=== PATIENT | female | born 1960 | race Caucasian/White ===

== ENCOUNTER 2019-01-03 15:51 | Emergency (ER) | payer OTHER ==
--- OUTSIDE RECORDS SUMMARY | 2019-01-03 15:53 | XMS REPORT | Clinical Summary ---
:1960 Author Organization [facility] Address [address] [place] [address] Care Team Providers Name Role Phone Fior Portillo MD Primary Care Provider Allergies Active Allergy Reactions Severity Noted Date Comments Clarithromycin 01/12/2018 Severe vomiting Prochlorperazine 01/12/2018 seizure Iron 01/12/2018 anaphylactic shock Medications Medication Sig Dispensed Refills Start Date End Date Status clonAZEPAM Take 0.5 mg 0 Active (KlonoPIN) 0.5 MG by mouth 2 tablet (two) times a day as needed for seizures. estradiol (ESTRACE) Take 1 mg by 0 Active 1 MG tablet mouth daily. famotidine (PEPCID) Take 20 mg by 0 Active 20 MG tablet mouth 2 (two) times a day. levothyroxine Take 25 mcg 0 Active (SYNTHROID, LEVOXYL) by mouth 25 mcg tablet every morning. metoprolol tartrate Take 25 mg by 0 Active (LOPRESSOR) 25 mg mouth daily. tablet promethazine Take 25 mg by 0 Active (PHENERGAN) 25 MG mouth every 6 tablet (six) hours as needed for nausea or vomiting. traZODone (DESYREL) Take 50 mg by 0 Active 50 MG tablet mouth nightly as needed for sleep. venlafaxine XR Take 300 mg 0 Active (EFFEXOR-XR) 150 MG by mouth 24 hr capsule daily. ondansetron (ZOFRAN) Take 8 mg by 0 Active 8 MG tablet mouth every 8 (eight) hours as needed for nausea or vomiting. dexamethasone Take 0.75 mg 0 01/16/2018 Discontinued (DECADRON) 0.75 MG by mouth tablet every 12 (twelve) hours. 10 day course for root canal, patient is on day 05/27. Active Problems Problem Noted Date Acute renal failure 01/16/2018 Essential hypertension 01/13/2018 Depression 01/13/2018 Hypothyroid 01/13/2018 Congestive heart failure 01/12/2018 Pancreatic cancer Encounters Date Type Specialty Care Team Description 10/15/2018 Lab Lab Alfredo Mccollum Chronic kidney MD Nickolas disease, stage III (moderate) (HCC) (Primary Dx) 01/12/2018 - Hospital Encounter Cardiology Elizabeth Carlson Congestive heart failure, unspecified congestive heart failure chronicity, unspecified congestive heart failure type (Primary Dx); 01/16/2018 MD Remy Diastolic congestive heart failure, unspecified congestive heart failure chronicity; Gloria Magallanes Essential hypertension; Escobar Call MD Mild single current episode of major depressive disorder after 01/02/2018 Social History Tobacco Use Types Packs/Day Years Used Date Never Smoker Smokeless Tobacco: Never Used Alcohol Use Drinks/Week oz/Week Comments No Sex Assigned at Date Recorded Not on file Job Start Date Occupation Industry Not on file Not on file Not on file Travel History Travel Start Travel End No recent travel history available. Last Filed Vital Signs Vital Sign Reading Time Taken Blood Pressure 103/51 01/16/2018 7:21 AM LABORATORY SAMPLER Pulse 68 01/16/2018 11:00 AM LABORATORY SAMPLER Temperature 36.4 C (97.5 F) 01/16/2018 7:21 AM LABORATORY SAMPLER Respiratory Rate 20 01/16/2018 7:21 AM LABORATORY SAMPLER Oxygen Saturation 95% 01/16/2018 7:21 AM LABORATORY SAMPLER Inhaled Oxygen Concentration - - Weight 48.2 kg (106 lb 3 oz) 01/16/2018 6:20 AM LABORATORY SAMPLER Height 151.1 cm (4' 11.5") 01/12/2018 3:52 PM LABORATORY SAMPLER Body Mass Index 21.09 01/16/2018 6:20 AM LABORATORY SAMPLER Plan of Treatment Health Maintenance Due Date Last Done Comments CERVICAL CANCER SCREENING 1982 BREAST CANCER SCREENING 2011 SHINGLES VACCINES (1 of 2) 2011 INFLUENZA VACCINE 06/18/2018 COLON CANCER SCREENING 09/08/2024 09/08/2014 Implants Implanted Type Area Bottle And Glass Inspector Device Identifier Shelf Expiration Model / Date Serial / Lot Pacemaker Pacemaker Procedures Procedure Name Priority Date/Time Associated Comments Diagnosis ESTIMATED GFR Routine 10/15/2018 10:18 Results for this AM LABORATORY SAMPLER procedure are in the results section. C4 COMPLEMENT COMPONENT Routine 10/15/2018 10:18 Chronic kidney Results for this AM LABORATORY SAMPLER disease, stage III procedure are in (moderate) (HCC) the results section. C3 COMPLEMENT COMPONENT Routine 10/15/2018 10:18 Chronic kidney Results for this AM LABORATORY SAMPLER disease, stage III procedure are in (moderate) (HCC) the results section. PARTIAL THROMBOPLASTIN Routine 10/15/2018 10:18 Chronic kidney Results for this TIME (PTT) AM LABORATORY SAMPLER disease, stage III procedure are in (moderate) (HCC) the results section. PROTHROMBIN TIME WITH Routine 10/15/2018 10:18 Chronic kidney Results for this INR AM LABORATORY SAMPLER disease, stage III procedure are in (moderate) (HCC) the results section. URINALYSIS SCREEN AND Routine 10/15/2018 10:18 Chronic kidney Results for this MICROSCOPY, WITH REFLEX AM LABORATORY SAMPLER disease, stage III procedure are in TO CULTURE (moderate) (HCC) the results section. CREATININE LEVEL, Routine 10/15/2018 10:18 Chronic kidney Results for this URINE, RANDOM AM LABORATORY SAMPLER disease, stage III procedure are in (moderate) (HCC) the results section. PROTEIN, URINE, RANDOM Routine 10/15/2018 10:18 Chronic kidney Results for this AM LABORATORY SAMPLER disease, stage III procedure are in (moderate) (HCC) the results section. PHOSPHORUS LEVEL Routine 10/15/2018 10:18 Chronic kidney Results for this AM LABORATORY SAMPLER disease, stage III procedure are in (moderate) (HCC) the results section. COMPREHENSIVE METABOLIC Routine 10/15/2018 10:18 Chronic kidney Results for this PANEL AM LABORATORY SAMPLER disease, stage III procedure are in (moderate) (HCC) the results section. HC COMPLETE BLD COUNT Routine 10/15/2018 10:18 Chronic kidney Results for this W/AUTO DIFF AM LABORATORY SAMPLER disease, stage III procedure are in (moderate) (HCC) the results section. URINE CULTURE Routine 10/15/2018 10:18 Results for this AM LABORATORY SAMPLER procedure are in the results section. ZZESTIMATED GFR Routine 01/16/2018 4:00 Results for this AM LABORATORY SAMPLER procedure are in the results section. BASIC METABOLIC PANEL Routine 01/16/2018 4:00 Results for this AM LABORATORY SAMPLER procedure are in the results section. PARATHYROID HORMONE Routine 01/15/2018 5:30 Results for this AM LABORATORY SAMPLER procedure are in the results section. HC COMPLETE BLD COUNT Routine 01/15/2018 5:30 Results for this W/AUTO DIFF AM LABORATORY SAMPLER procedure are in the results section. ZZESTIMATED GFR Routine 01/15/2018 4:00 Results for this AM LABORATORY SAMPLER procedure are in the results section. BASIC METABOLIC PANEL Routine 01/15/2018 4:00 Results for this AM LABORATORY SAMPLER procedure are in the results section. ZZESTIMATED GFR Routine 01/14/2018 5:27 Results for this AM LABORATORY SAMPLER procedure are in the results section. MAGNESIUM LEVEL Routine 01/14/2018 5:27 Results for this AM LABORATORY SAMPLER procedure are in the results section. B NATRIURETIC PEPTIDE Routine 01/14/2018 5:27 Results for this AM LABORATORY SAMPLER procedure are in the results section. BASIC METABOLIC PANEL Routine 01/14/2018 5:27 Results for this AM LABORATORY SAMPLER procedure are in the results section. HC COMPLETE BLD COUNT Routine 01/14/2018 5:27 Results for this W/AUTO DIFF AM LABORATORY SAMPLER procedure are in the results section. ECHOCARDIOGRAM 2D Routine 01/13/2018 1:39 Results for this COMPLETE W MMODE PM LABORATORY SAMPLER procedure are in SPECTRAL COLOR DOPPLER the results (35649) section. TROPONIN Routine 01/13/2018 6:00 Results for this AM LABORATORY SAMPLER procedure are in the results section. ZZESTIMATED GFR Routine 01/13/2018 6:00 Results for this AM LABORATORY SAMPLER procedure are in the results section. T4, FREE Routine 01/13/2018 6:00 Results for this AM LABORATORY SAMPLER procedure are in the results section. THYROID STIMULATING Routine 01/13/2018 6:00 Results for this HORMONE AM LABORATORY SAMPLER procedure are in the results section. LIPID PANEL Routine 01/13/2018 6:00 Results for this AM LABORATORY SAMPLER procedure are in the results section. BASIC METABOLIC PANEL Routine 01/13/2018 6:00 Results for this AM LABORATORY SAMPLER procedure are in the results section. HC COMPLETE BLD COUNT Routine 01/13/2018 6:00 Results for this W/AUTO DIFF AM LABORATORY SAMPLER procedure are in the results section. URINALYSIS SCREEN AND Routine 01/12/2018 5:50 Results for this MICROSCOPY, WITH REFLEX PM LABORATORY SAMPLER procedure are in TO CULTURE the results section. URINE CULTURE Routine 01/12/2018 5:47 Results for this PM LABORATORY SAMPLER procedure are in the results section. ECG ED PRELIMINARY Routine 01/12/2018 5:17 Results for this INTERPRETATION PM LABORATORY SAMPLER procedure are in the results section. ZZESTIMATED GFR STAT 01/12/2018 4:42 Results for this PM LABORATORY SAMPLER procedure are in the results section. B NATRIURETIC PEPTIDE STAT 01/12/2018 4:42 Results for this PM LABORATORY SAMPLER procedure are in the results section. COMPREHENSIVE METABOLIC STAT 01/12/2018 4:42 Results for this PANEL PM LABORATORY SAMPLER procedure are in the results section. PARTIAL THROMBOPLASTIN STAT 01/12/2018 4:42 Results for this TIME (PTT) PM LABORATORY SAMPLER procedure are in the results section. PROTHROMBIN TIME WITH STAT 01/12/2018 4:42 Results for this INR PM LABORATORY SAMPLER procedure are in the results section. HC COMPLETE BLD COUNT STAT 01/12/2018 4:42 Results for this W/AUTO DIFF PM LABORATORY SAMPLER procedure are in the results section. XR CHEST 1 VW PORTABLE STAT 01/12/2018 4:39 Results for this PM LABORATORY SAMPLER procedure are in the results section. BLOOD CULTURE, AEROBIC Routine 01/12/2018 4:35 Results for this & ANAEROBIC PM LABORATORY SAMPLER procedure are in the results section. ECG 12-LEAD STAT 01/12/2018 4:02 Results for this PM LABORATORY SAMPLER procedure are in the results section. after 01/02/2018 Results Urinalysis screen and microscopy, with reflex to culture (10/15/2018 10:18 AM LABORATORY SAMPLER)Only the most recent of2 resultswithin the time period is included. Specimen site Clean catch [facility] Color, UA Straw [facility] Appearance, UA Clear [facility] Specific gravity, UA 1.013 1.001 - 1.035 [facility] pH, UA 5.0 5.0 - 8.5 [facility] Protein, UA Negative Negative [facility] Glucose, UA Negative Negative [facility] Ketones, UA Negative Negative [facility] Bilirubin, UA Negative Negative [facility] Blood, UA Negative Negative [facility] Nitrite, UA Negative Negative [facility] Urobilinogen, UA <2.0 <2.0 [facility] Leukocyte esterase, UA Negative Negative [facility] Epithelial cells, UA 1 /HPF [facility] WBC, UA <1 0 - 4 /HPF [facility] RBC, UA 1 0 - 5 /HPF [facility] Bacteria, UA None seen None seen [facility] Yeast, UA None seen [facility] Yeast with pseudohyphae, UA None seen [facility] Hyaline casts, UA 1 /LPF [facility] Specimen Urine Performing Organization Address City/State/Zipcode Phone Number [facility] DEPARTMENT OF PATHOLOGY AND [address] [place] [phone] [place] [phone] Estimated GFR (10/15/2018 10:18 AM LABORATORY SAMPLER) Estimated GFR 28 (A) mL/min/1.73 m2 [facility] Comment: HOSPITAL CatergoryUnitsInterpretation G1 >=90 Normal or high G2 60-89Mildly decreased C3s97-91Cafcmb to moderately decreased H4u90-72Vgjoculmam to severely decreased G4 15-29Severely decreased G5 <15Kidney failure The eGFR was calculated using the Chronic Kidney Disease Epidemiology Collaboration (CKD-EPI) equation. Interpretation is based on recommendations of the National Kidney Foundation-Kidney Disease Outcomes Quality Initiative (NKF-KDOQI) published in 2014. Specimen Plasma specimen Performing Organization Address City/[facility] Phone Number [facility] DEPARTMENT OF PATHOLOGY AND [address] [place] [phone] Protein, urine, random (10/15/2018 10:18 AM LABORATORY SAMPLER) Protein, urine random 5 mg/dL [facility] Specimen Urine Performing Organization Address City/[facility] [place] [facility] Cent[facility] Phone Number [facility] DEPARTMENT OF PATHOLOGY AND [address] [place] [phone] Creatinine level, urine, random (10/15/2018 10:18 AM LABORATORY SAMPLER) Creatinine, urine, random 105 mg/dL [facility] Specimen Urine Performing Organization Address City/[facility] [place] [facility] Phone Number [facility] DEPARTMENT OF PATHOLOGY AND [address] [place] [phone] Partial thromboplastin time, activated (10/15/2018 10:18 AM LABORATORY SAMPLER)Only the most recent of2 resultswithin the time period is included. PTT 25.9 23.0 - 36.0 sec [facility] Comment: PTT therapeutic range for unfractionated heparin is 61.0-112.0 seconds which corresponds to Anti-Xa 0.3-0.7 U/ml. Specimen Blood Performing Organization Address City/State/Zipcode Phone Number [facility] DEPARTMENT OF PATHOLOGY AND [address] [place] [address] [facility] [address] [place] [address] Prothrombin time with INR (10/15/2018 10:18 AM LABORATORY SAMPLER)Only the most recent of2 resultswithin the time period is included. Prothrombin time 13.2 11.5 - 14.5 sec [facility] INR 1.0 [facility] Comment: HOSPITAL The International Normalized Ratio (INR) is a therapeutic monitoring tool for patients who are stable on oral anticoagulant therapy. An INR of 2.0-3.0 is suggested for deep vein thrombosis/pulmonary embolism. Specimen Blood Performing Organization Address City/State/Zipcode Phone Number [facility] DEPARTMENT OF PATHOLOGY AND [address] [place], [place] [phone] [place] [phone] CBC with platelet and differential (10/15/2018 10:18 AM LABORATORY SAMPLER)Only the most recent of5 resultswithin the time period is included. WBC 8.00 4.50 - 11.00 k/uL [facility] RBC 3.57 (L) 4.20 - 5.50 m/uL [facility] HGB 10.8 (L) 12.0 - 16.0 g/dL [facility] HCT 35.0 (L) 37.0 - 47.0 % [facility] MCV 98.0 82.0 - 100.0 fL [facility] MCH 30.3 27.0 - 34.0 pg [facility] MCHC 30.9 (L) 31.0 - 37.0 g/dL [facility] RDW - SD 46.3 37.0 - 55.0 fL [facility] MPV 10.9 8.8 - 13.2 fL [facility] Platelet count 212 150 - 400 k/uL [facility] Nucleated RBC 0.00 /100 WBC [facility] Neutrophils 68.9 39.0 - 69.0 % [facility] Lymphocytes 22.0 (L) 25.0 - 45.0 % [facility] Monocytes 5.9 0.0 - 10.0 % [facility] Eosinophils 1.9 0.0 - 5.0 % [facility] Basophils 1.0 0.0 - 1.0 % [facility] Immature granulocytes 0.3Comment: "Immature 0.0 - 1.0 % [facility] granulocytes" HOSPITAL (promyelocytes, myelocytes, metamyelocytes) Specimen Blood Performing Organization Address City/[facility] [place] [facility] Cent[facility]ode Phone Number [facility] DEPARTMENT OF PATHOLOGY AND [address] [place] [phone] [place] [phone] Urine culture (10/15/2018 10:18 AM LABORATORY SAMPLER)Only the most recent of2 resultswithin the time period is included. Urine culture SEE COMMENTComment: Bacteriuria [facility] screen negative. Performing Organization Address [facility] [place] [facility] Centercode Phone Number [facility] DEPARTMENT OF PATHOLOGY AND [address] [place] [phone] C3 complement component (10/15/2018 10:18 AM LABORATORY SAMPLER) C3 complement 103 90 - 180 mg/dL [facility] Specimen Plasma specimen Performing Organization Address [facility] Phone Number [facility] DEPARTMENT OF PATHOLOGY AND [address] [place] [phone] [place] [phone] C4 complement component (10/15/2018 10:18 AM LABORATORY SAMPLER) C4 complement 13 10 - 40 mg/dL [facility] Specimen Plasma specimen Performing Organization Address [facility] Phone Number [facility] DEPARTMENT OF PATHOLOGY AND [address] [place] [phone] Phosphorus level (10/15/2018 10:18 AM LABORATORY SAMPLER) Phosphorus 3.0 2.4 - 4.5 mg/dL [facility] Specimen Plasma specimen Performing Organization Address [facility] [place] [facility]ode Phone Number [facility] DEPARTMENT OF PATHOLOGY AND [address] [place] [phone] Comprehensive metabolic panel (10/15/2018 10:18 AM LABORATORY SAMPLER)Only the most recent of2 resultswithin the time period is included. Sodium 140 135 - 148 mEq/L [facility] Potassium 4.7 3.5 - 5.0 mEq/L [facility] Chloride 103 98 - 112 mEq/L [facility] CO2 23 (L) 24 - 31 mEq/L [facility] Anion gap 14@ANIO 7 - 15 mEq/L [facility] BUN 20 6 - 20 mg/dL [facility] Creatinine 1.94 (H) 0.50 - 0.90 mg/dL [facility] Glucose 79 65 - 99 mg/dL [facility] Calcium 9.0 8.3 - 10.2 mg/dL [facility] Protein 6.3 6.3 - 8.3 g/dL [facility] Comment: HOSPITAL [place] 4.6-7.0 g/dL 1 week 4.4-7.6 g/dL 7 months-1year5.1-7.3 g/dL 1-2 years5.6-7.5 g/dL >3 years6.0-8.0 g/dL 18-150 6.3-8.3 g/dL Albumin 3.6 3.5 - 5.0 g/dL [facility] A/G ratio 1.3 0.7 - 3.8 [facility] Alkaline phosphatase 79 35 - 104 U/L [facility] AST 36 (H) 10 - 35 U/L [facility] ALT 48 5 - 50 U/L [facility] Total bilirubin 0.3 0.0 - 1.2 mg/dL [facility] Specimen Plasma specimen Performing Organization Address City/State/Zipcode Phone Number [facility] DEPARTMENT OF PATHOLOGY AND [address] [place] [phone] [facility]ICINE [address] [address] Estimated GFR (01/16/2018 4:00 AM LABORATORY SAMPLER)Only the most recent of5 resultswithin the time period is included. GFR Non Af Amer 29 (A) mL/min/1.73 m2 [facility] DEPARTMENT OF PATHOLOGY AND GENOMIC MEDICINE GFR Af Amer 35 (A) mL/min/1.73 m2 [facility] DEPARTMENT OF Comment: PATHOLOGY AND GENOMIC Chronic kidney disease: <60 mL/min/1.73m2 MEDICINE Kidney failure: <15 mL/min/1.73m2 The estimated GFR is calculated from the IDMS-traceable Modification of Diet in Renal Disease Equation. The accuracy of the calculation is poor when the creatinine is normal. Calculated values >90 mL/min/1.73m2 are not reported. This equation has not been validated in children (<18 years), women, the elderly (>70 years), or ethnic groups other than Caucasians and Americans. Specimen Plasma specimen Performing Organization Address City/State/[facility] [place] [facility] Centercode Phone Number [facility] DEPARTMENT OF PATHOLOGY AND [address] [place] [address] Basic metabolic panel (01/16/2018 4:00 AM LABORATORY SAMPLER)Only the most recent of4 resultswithin the time period is included. Sodium 143 135 - 148 mEq/L [facility] DEPARTMENT OF PATHOLOGY AND GENOMIC MEDICINE Potassium 4.4 3.5 - 5.0 mEq/L [facility] DEPARTMENT OF PATHOLOGY AND GENOMIC MEDICINE Chloride 103 98 - 112 mEq/L [facility] DEPARTMENT OF PATHOLOGY AND GENOMIC MEDICINE CO2 31 24 - 31 mEq/L [facility] DEPARTMENT OF PATHOLOGY AND GENOMIC MEDICINE Anion gap 9 7 - 15 mEq/L [facility] DEPARTMENT OF PATHOLOGY Comment: [facility] Starting from February , anion gap calculation no longer incorporates potassium. Please note the change. BUN 28 (H) 6 - 20 mg/dL [facility] DEPARTMENT OF PATHOLOGY AND GENOMIC MEDICINE Creatinine 1.8 (H) 0.5 - 0.9 mg/dL [facility] DEPARTMENT OF PATHOLOGY AND GENOMIC MEDICINE Glucose 96 65 - 99 mg/dL [facility] DEPARTMENT OF PATHOLOGY AND GENOMIC MEDICINE Calcium 9.0 8.3 - 10.2 mg/dL [facility] DEPARTMENT OF PATHOLOGY AND GENOMIC MEDICINE Specimen Plasma specimen Performing Organization Address City/[facility] [place] [facility] Centercotn Phone Number [facility] DEPARTMENT OF PATHOLOGY AND [address] [place] [address] Parathyroid hormone (01/15/2018 5:30 AM LABORATORY SAMPLER) PTH 99 (H) 15 - 65 pg/mL [facility] DEPARTMENT OF PATHOLOGY AND GENOMIC MEDICINE Specimen Blood Performing Organization Address City/[facility] [place] [facility] Centercode Phone Number [facility] DEPARTMENT OF PATHOLOGY AND [address] [place] [address] B natriuretic peptide (01/14/2018 5:27 AM LABORATORY SAMPLER)Only the most recent of2 resultswithin the time period is included. BNP 52 0 - 100 pg/mL [facility] DEPARTMENT OF PATHOLOGY AND GENOMIC MEDICINE Specimen Blood Performing Organization Address City/[facility] [place] [facility] Centercode Phone Number [facility] DEPARTMENT OF PATHOLOGY AND [address] [place] [address] GENOMIC MEDICINE Magnesium level (01/14/2018 5:27 AM LABORATORY SAMPLER) Magnesium 2.0 1.6 - 2.6 mg/dL [facility] DEPARTMENT OF PATHOLOGY AND GENOMIC MEDICINE Specimen Plasma specimen Performing Organization Address City/State/Zipcode Phone Number [facility] DEPARTMENT OF PATHOLOGY AND [address] [place] [address] GENOMIC MEDICINE Echocardiogram complete w contrast and 3D if needed (01/13/2018 1:39 PM LABORATORY SAMPLER) Narrative Performed At [facility] Echocardiography Report [address] [place] [address] [address] [address] Pat.Name:JENNIFER HADDAD Pat.ID:[id number] St.Date: 01/13/2018 Refer.MD:GLORIA MAGALLANES MD Exam Time: 1:07:00 PMStudy Type:Routine Echo Height:59inWeight: 114lb BSA: 1.45 m2 DOBAge:1960,57Y Sex: FEMALEBP:125/58 HR:60 bpmSonogrphr: ALO Bustamante Pat. Stat.:Inpatient Room:[facility] Study Status:Final Echo Event ID:[id number] Order ID:[id number] Reason for Study:SOB, suspected cardiac etiology History / Clinical:Cancer, Chest Pain, Edema, Shortness of Breath Procedures:2D Echo, Colorflow Doppler Race:C SUMMARY: LV EF is normal. Estimated EF is 65-69% RV systolic function is normal. Unable to assess severity of aortic regurgitation accurately. Suspect a mild-moderate lesion. LV filling pressure is normal. FINDINGS: LV: LV size is normal. LV EF is normal. Overall wall motion is normal.Estimated EF is 65-69% RV: RV size is normal. A pacemaker wire is seen in the RV. RV systolicfunction is normal. LA: LA volume is mildly enlarged. RA: RA volume is normal. A pacemaker wire is seen. AO: Aortic root diameter is normal. FANI: No pericardial effusion. AV: Mild thickening of AV leaflets. Mild calcification of AV leaflets.Unable to assess severity of aortic regurgitation accurately.Suspect a mild-moderate lesion. Vena contracta-0.3cm; Recommend further imaging for better assessmentof AR if clinically indicated. MV: No structural MV abnormalities noted. A trace of mitral regurgitation. PV: Pulmonic valve not well seen. Mild pulmonic regurgitation. TV: No structural TV abnormalities noted. Mild tricuspid regurgitation Lawrence: LV relaxation is impaired. LV filling pressure is normal. Other:Estimated PA systolic pressure is appx 26 mmHg, assuming a meanRAP of 5 mmHg. MEASUREMENTS: 2D Parasternal [place] LVOT 1.7 cmLA Ds3 cm LVIDd4.1 cmIndex2.8 cm/m LV Mass 73.4 g(87-129) LVIDs2.4 cmLVM Index 50.6 g/m2 LV%fs 40.6 % RWT0.3 IVSd 0.7 cmAo Rtd 2.8 cm Index1.9 cm/m LVPWd0.6 cm LA Sng Plane LA Area 19 cm2(8.8-23.4) LA Vol53.8 ml Index37.1 ml/m LA LngAx 5.5 cm RA Sng Plane RA Area 13.7 cm2(8.3-19.5) RA Vol32.8 ml Index22.6 ml/m RA LngAx 4.7 cm DOPPLER LVOT Stroke Vol LVOT 1.7 cmLVOT CO2.9 l/min LVOT TVI20.9 cmLVOT CI2 l/m/m2 LVOT Tm389 uvtoEG39 bpm LVOT SV 47.3 ml Signed 01/14/2018 11:50 AM Elizabeth London MD Procedure Note Interface, Radiology Results In - 01/14/2018 11:50 AM LABORATORY SAMPLER Echocardiography Report [id number] [place] [address] Pat.Name: JENNIFER HADDAD Pat.ID: [id number] St.Date: 01/13/2018 Refer.MD: GLORIA MAGALLANES MD Exam Time: 1:07:00 PM Study Type:Routine Echo Height: 59in Weight: 114lb BSA: 1.45 m2 Age: 10 1960,57Y Sex: FEMALE BP: 125/58 HR: 60 bpm Sonogrphr: ALO Bustamante Pat. Stat.:Inpatient [facility] Study Status:Final Echo Event ID:[id number] Order ID: [id number] Reason for Study:SOB, suspected cardiac etiology History / Clinical:Cancer, Chest Pain, Edema, Shortness of Breath Procedures:2D Echo, Colorflow Doppler Race: C SUMMARY: LV EF is normal. Estimated EF is 65-69% RV systolic function is normal. Unable to assess severity of aortic regurgitation accurately. Suspect a mild-moderate lesion. LV filling pressure is normal. FINDINGS: LV: LV size is normal. LV EF is normal. Overall wall motion is normal. Estimated EF is 65-69% RV: RV size is normal. A pacemaker wire is seen in the RV. RV systolic function is normal. LA: LA volume is mildly enlarged. RA: RA volume is normal. A pacemaker wire is seen. AO: Aortic root diameter is normal. FANI: No pericardial effusion. AV: Mild thickening of AV leaflets. Mild calcification of AV leaflets. Unable to assess severity of aortic regurgitation accurately. Suspect a mild-moderate lesion. Vena contracta-0.3 cm; Recommend further imaging for better assessment of AR if clinically indicated. MV: No structural MV abnormalities noted. A trace of mitral regurgitation. PV: Pulmonic valve not well seen. Mild pulmonic regurgitation. TV: No structural TV abnormalities noted. Mild tricuspid regurgitation Lawrence: LV relaxation is impaired. LV filling pressure is normal. Other: Estimated PA systolic pressure is appx 26 mmHg, assuming a mean RAP of 5 mmHg. MEASUREMENTS: 2D Parasternal [place] LVOT 1.7 cm LA Ds 3 cm LVIDd 4.1 cm Index 2.8 cm/m LV Mass 73.4 g (87-129) LVIDs 2.4 cm LVM Index 50.6 g/m2 LV%fs 40.6 % RWT 0.3 IVSd 0.7 cm Ao Rtd 2.8 cm Index 1.9 cm/m LVPWd 0.6 cm LA Sng Plane LA Area 19 cm2 (8.8-23.4) LA Vol 53.8 ml Index 37.1 ml/m LA LngAx 5.5 cm RA Sng Plane RA Area 13.7 cm2 (8.3-19.5) RA Vol 32.8 ml Index 22.6 ml/m RA LngAx 4.7 cm DOPPLER LVOT Stroke Vol LVOT 1.7 cm LVOT CO 2.9 l/min LVOT TVI 20.9 cm LVOT CI 2 l/m/m2 LVOT Tm 389 msec HR 61 bpm LVOT SV 47.3 ml Signed 01/14/2018 11:50 AM Elizabeth London MD Performing Organization Address City/State/Zipcode Phone Number [facility] [address] [place] [address] Troponin (01/13/2018 6:00 AM LABORATORY SAMPLER) Troponin <0.30 0.00 - 0.30 ng/mL [facility] DEPARTMENT OF PATHOLOGY Comment: AND GENOMIC MEDICINE 0.30 - 1.49 ng/mlMay indicate increased risk of acute coronary syndrome. >=1.5 ng/mlConsistent with acute myocardial infarction. The diagnostic value of a single normal or non-diagnostic result is questionable.Serial samples at 2-6 hour intervals are required to rule out acute myocardial injury. Specimen Plasma specimen Performing Organization Address City/[facility] Phone Number [facility] DEPARTMENT OF PATHOLOGY AND [address] [place] [address] Thyroid stimulating hormone (01/13/2018 6:00 AM LABORATORY SAMPLER) TSH 7.57 (H) 0.27 - 4.20 uIU/mL [facility] DEPARTMENT OF PATHOLOGY AND GENOMIC MEDICINE Specimen Plasma specimen Performing Organization Address [facility] [place] [facility]n Phone Number [facility] DEPARTMENT OF PATHOLOGY AND [address] [place] [address] T4, free (01/13/2018 6:00 AM LABORATORY SAMPLER) T4, free 1.2 0.9 - 1.7 ng/dL [facility] DEPARTMENT OF PATHOLOGY AND GENOMIC MEDICINE Specimen Plasma specimen Performing Organization Address City/[facility] Phone Number [facility] DEPARTMENT OF PATHOLOGY AND [address] [place] [address] Lipid panel (01/13/2018 6:00 AM LABORATORY SAMPLER) Cholesterol 123 <200 mg/dL [facility] DEPARTMENT OF PATHOLOGY AND GENOMIC MEDICINE Triglycerides 55 <150 mg/dL [facility] DEPARTMENT OF PATHOLOGY AND GENOMIC MEDICINE HDL cholesterol 55 >40 mg/dL [facility] DEPARTMENT OF PATHOLOGY AND GENOMIC MEDICINE LDL cholesterol 58Comment: Result <100 mg/dL [facility] DEPARTMENT OF obtained by direct LDL PATHOLOGY AND GENOMIC measurement MEDICINE Lipid panel interpretation SeeBelow [facility] DEPARTMENT OF Comment: PATHOLOGY AND GENOMIC Total Cholesterol (mg/dL) MEDICINE <200 Desirable 364-028Ehkjnosoqx-rcwd >=240High Triglycerides (mg/dL) <150 Normal 011-112Ibtkrtebfi-bfua 200-499High >=500Very high HDL Cholesterol (mg/dL) <40Low (male) <40Low (female) LDL Cholesterol (mg/dL) <100 Optimal 100-129Near or above optimal 944-311Fnnkgrmscq-zyul 160-189High >=190Very high Risk Catergories that modify LDL goals. Risk CatergoriesLDL goal (mg/dL) CHD and CHD risk equivalent<100 (10-year risk >20%) Multiple (2+) risk factors <130 (10-year risk=<20%) 0-1 risk factors <160 (<10-year risk) Defining levels of lipids in metabolic syndrome Triglycerides>=150 mg/dL HDL Cholesterol Men<40 mg/dL Women<40 mg/dL Non-HDL cholesterol is a second target for therapy in persons with high triglycerides (>=200 mg/dL) Specimen Plasma specimen Performing Organization Address City/State/Zipcode Phone Number [facility] DEPARTMENT OF PATHOLOGY AND [address] [place] [phone] GENOMIC MEDICINE ECG ED Preliminary Interpretation - NOT AN ORDER (01/12/2018 5:17 PM LABORATORY SAMPLER) Narrative Performed At Elizabeth Carlson MD 01/13/20188:34 PM ECG ED Preliminary Interpretation - Not an Order Performed by: ELIZABETH CARLSON Authorized by: ELIZABETH CARLSON ECG reviewed by ED Physician in the absence of a buckle coverer: yes Previous ECG: Previous ECG:Unavailable Interpretation: Interpretation: normal Rate: ECG rate:60 ECG rate assessment: normal Rhythm: Rhythm: sinus rhythm and paced Pacing: Type of pacing:Atrial Ectopy: Ectopy: none QRS: QRS axis:Normal QRS intervals:Normal Conduction: Conduction: normal ST segments: ST segments:Normal T waves: T waves: normal XR Chest 1 Vw Portable (01/12/2018 4:39 PM LABORATORY SAMPLER) Narrative Performed At EXAMINATION:XR CHEST 1 VW PORTABLE RADIANT CLINICAL HISTORY:cp COMPARISON:Chest x-ray 11/15/2014 IMPRESSION: Single frontal view reveals a stable cardiomediastinal silhouette with a right-sided dual-lead pacemaker and left subclavian Port-A-Cath remaining in place. Lungs are clear. Pleural margins are sharp. The remainder of the examination is unchanged. [facility]-[id number] Procedure Note Hm Interface, Radiology Results Incoming - 01/12/2018 4:44 PM LABORATORY SAMPLER EXAMINATION: XR CHEST 1 VW PORTABLE CLINICAL HISTORY: cp COMPARISON: Chest x-ray 11/15/2014 IMPRESSION: Single frontal view reveals a stable cardiomediastinal silhouette with a right-sided dual-lead pacemaker and left subclavian Port-A-Cath remaining in place. Lungs are clear. Pleural margins are sharp. The remainder of the examination is unchanged. [facility]-[id number] Performing Organization Address [facility] [place] [facility] Centercode Phone Number [facility] [address] [place] [address] Blood culture, aerobic & anaerobic (01/12/2018 4:35 PM LABORATORY SAMPLER) Blood culture isolate No growth after 5 days of incubation. [facility] DEPARTMENT OF Comment: PATHOLOGY AND GENOMIC Specimen Information MEDICINE Specimen Source: Blood Specimen Site: Line, Port-a-cath Left Specimen Blood Performing Organization Address [facility] [place] [facility] Phone Number [facility] DEPARTMENT OF PATHOLOGY AND [address] [place] [address] GENOMIC MEDICINE ECG 12 lead (01/12/2018 4:02 PM LABORATORY SAMPLER) Ventricular rate 60 [facility] Atrial rate 60 [facility] [place] interval 100 [facility] QRSD interval 86 [facility] QT interval 410 [facility] QTC interval 410 [facility] P axis 1 57 [facility] QRS axis 1 17 [facility] T wave axis 34 [facility] EKG impression Electronic atrial pacemaker-In automated comparison with ECG of 15-NOV-2014 19:42,-Electronic atrial pacemaker has replaced Sinus rhythm- Vent. rate has decreased BY51 BPM-T wave inversion no longer evident in Inferior leads-T wave inversion less [facility] evident in Anterolateral leads- Performing Organization Address [facility] Phone Number [facility] [address] [address] [place] [address] after 01/02/2018 Insurance Payer Benefit Plan / Group Subscriber ID Type Phone Address [employer] MEDICARE HU[employer]NA MEDICARE PPO/PFFS/ERS [facility] xxxxxxxxx PPO Advance Directives Patient has advance care planning documents, and code status on file. For more information, please contact:Wolf Sharma[address] [place] [address] Code Status Date Activated Date Inactivated Comments Full Code 01/12/2018 11:59 PM 01/16/2018 5:49 PM Code Status decision reached by: Patient
--- NOTE | 2019-01-03 17:08 | RAD REPORT ---
EXAM DESCRIPTION: RAD - Knee Left 3 View - 01/03/2019 4:41 pm CLINICAL HISTORY: PAIN COMPARISON: No comparisons FINDINGS: Mild medial compartment space narrowing is present. No fracture, dislocation or joint effu matthew.
[2019-01-03] MEDS ORDERED: HYDROCODONE/APAP 10/325 TAB ONE (17:16)
--- NOTE | 2019-01-03 17:23 | RAD REPORT ---
EXAM DESCRIPTION: US - Extremity Venous Uni Ltd - 01/03/2019 5:17 pm CLINICAL HISTORY: PAIN Leg swelling and edema. COMPARISON: Extrem Venous W Compress Gonzalo dated 09/16/2017 FINDINGS: Left lower extremity venous system was interrogated with Doppler technique. Normal flow, c ompressibility and augmentation was noted. There is no DVT present. IMPRESSION: No evidence of left lower extremity deep venous thrombosis.
--- NOTE | 2019-01-03 17:51 | EDPHYS ---
Physician Documentation [facility] Name: Jennifer Haddad Age: 58 yrs Sex: Female : 1960 Arrival Date: 01/03/2019 Time: 15:52 Bed 26 Private MD: Ryan Thomas V ED Physician Kaleb Vick HPI: 01/03 17:21 This 58 yrs old Female presents to ER via Ambulatory with complaints of Knee gs Pain. 17:21 The patient presents with pain. The complaints affect the posterior aspect of left knee gs and left knee. Onset: The symptoms/episode began/occurred 1 week(s) ago, and became persistent. Modifying factors: The symptoms are alleviated by elevating leg, the symptoms are aggravated by movement, weight bearing, bending knee. Associated signs and symptoms: Pertinent negatives numbness, swelling, warmth, weakness. Severity of symptoms: At their worst the symptoms were moderate, in the emergency department the symptoms are unchanged. The patient has not experienced similar symptoms in the past. Historical: - Allergies: 15:58 prochlorperazine Edisylate; hj 15:58 Prochlorperazine Maleate; hj 15:58 pyrilamine maleate; hj 15:58 metronidazole; hj 15:58 Pamabrom; hj 15:58 sucrose; hj 15:58 sodium ferric gluconate complex; hj - Home Meds: 15:58 levothyroxine 50 mcg tab 1 tab once daily [Active]; metoprolol tartrate 25 mg Oral tab hj 1 tab once daily [Active]; famotidine 20 mg Oral tab 1 tab every 6 hours [Active]; venlafaxine 150 mg oral cp24 1 cap once daily [Active]; bupropion HCl 100 mg Oral TbER 1 tab 2 times per day [Active]; clonazepam 1 mg Oral tab 1 tab 3 times per day [Active]; estradiol 1 mg Oral tab 1 tab once daily [Active]; furosemide 20 mg Oral tab 1 tab as needed [Active]; - PSHx: 15:58 Tonsillectomy; Adenoids; whipple surgery; Right knee surgery; Hysterectomy; back hj surgery; Appendectomy; Left foot toe surgery; - Immunization history:: Adult Immunizations up to date. - Social history:: Smoking status: Patient/guardian denies using tobacco, Patient/guardian denies using alcohol. - Ebola Screening: : Patient negative for fever greater than or equal to 101.5 degrees Fahrenheit, and additional compatible Ebola Virus Disease symptoms Patient denies exposure to infectious person Patient denies travel to an Ebola-affected area in the 21 days before illness onset. ROS: 17:42 All other systems are negative. gs Exam: 17:42 Head/Face: Normocephalic, atraumatic. Eyes: Pupils equal round and reactive to light, gs extra-ocular motions intact. Lids and lashes normal. Conjunctiva and sclera are non-icteric and not injected. Cornea within normal limits. Periorbital areas with no swelling, redness, or edema. ENT: Nares patent. No nasal discharge, no septal abnormalities noted. Tympanic membranes are normal and external auditory canals are clear. Oropharynx with no redness, swelling, or masses, exudates, or evidence of obstruction, uvula midline. Mucous membranes moist. Neck: Trachea midline, no thyromegaly or masses palpated, and no cervical lymphadenopathy. Supple, full range of motion without nuchal rigidity, or vertebral point tenderness. No Meningismus. Chest/axilla: Normal chest wall appearance and motion. Nontender with no deformity. No lesions are appreciated. Cardiovascular: Regular rate and rhythm with a normal S1 and S2. No gallops, murmurs, or rubs. Normal PMI, no JVD. No pulse deficits. Respiratory: Lungs have equal breath sounds bilaterally, clear to auscultation and percussion. No rales, rhonchi or wheezes noted. No increased work of breathing, no retractions or nasal flaring. Abdomen/GI: Soft, non-tender, with normal bowel sounds. No distension or tympany. No guarding or rebound. No evidence of tenderness throughout. Back: No spinal tenderness. No costovertebral tenderness. Full range of motion. Skin: Warm, dry with normal turgor. Normal color with no rashes, no lesions, and no evidence of cellulitis. Neuro: Awake and alert, GCS 15, oriented to person, place, time, and situation. Cranial nerves II-XII grossly intact. Motor strength 5/5 in all extremities. Sensory grossly intact. Cerebellar exam normal. Normal gait. 17:42 Constitutional: The patient appears alert, awake. 17:42 Musculoskeletal/extremity: Extremities: noted in the left calf, medial aspect of left thigh and left knee: pain, tenderness, Circulation is intact in all extremities. Sensation intact. Joints: the left knee displays painful range of motion, tenderness, no swelling or effusion. Vital Signs: 15:59 BP 115 / 58; Pulse 60; Resp 18; Temp 97.7(O); Pulse Ox 100% on R/A; Weight 48.99 kg; hj Height 5 ft. 0 in. (152.40 cm); Pain 10/10; 17:42 BP 103 / 69; Pulse 60; Resp 18; Pulse Ox 100% on R/A; tl3 18:06 BP 110 / 60; Pulse 59; Resp 18; Pulse Ox 100% on R/A; tl3 15:59 Body Mass Index 21.09 (48.99 kg, 152.40 cm) hj MDM: 16:50 Patient medically screened. gs 17:42 Differential diagnosis: tendonitis, dvt,brown cyst. Data reviewed: vital signs, nurses gs notes. Counseling: I had a detailed discussion with the patient and/or guardian regarding: the historical points, exam findings, and any diagnostic results supporting the discharge/admit diagnosis, radiology results, the need for outpatient follow up, a orthopedic surgeon. Response to treatment: the patient's symptoms have mildly improved after treatment, and as a result, I will discharge patient. 02 16:17 Order name: Knee Left 3 View XRAY; Complete Time: 17:42 tl3 01/03 16:51 Order name: US Extremity Venous Unilateral Ltd; Complete Time: 17:42 gs Administered Medications: 17:05 Drug: [place] 10 mg-325 mg 1 tabs Route: PO; tl3 18:08 Follow up: Response: Pain is decreased tl3 Disposition: 01/03/19 17:49 Discharged to Home. Impression: Other internal derangements of left knee. - Condition is Stable. - Discharge Instructions: Knee Ligament Injury, Arthroscopy. - Prescriptions for Tylenol- Codeine #4 300-60 mg Oral Tablet - take 1 tablet by ORAL route every 6 hours As needed; 12 tablet. - Medication Reconciliation Form, Thank You Letter, Antibiotic Education, Prescription Opioid Use form. - Follow up: Mehdi Alvarado MD; When: 2 - 3 days; Reason: Recheck today's complaints. Signatures: Dispatcher [employer] EDMS Solomon Harris RN RN Kaleb Vick MD MD Audrey Suarez RN RN tl3 Corrections: (The following items were deleted from the chart) 18:09 17:49 01/03/2019 17:49 Discharged to Home. Impression: Other internal derangements of tl3 left knee. Condition is Stable. Forms are Medication Reconciliation Form, Thank You Letter, Antibiotic Education, Prescription Opioid Use. Follow up: Mehdi Alvarado; When: 2 - 3 days; Reason: Recheck today's complaints. gs
--- NOTE | 2019-01-03 17:51 | ER ---
Nurse's Notes [facility] Emergency Department Name: Jennifer Haddad Age: 58 yrs Sex: Female : 1960 Arrival Date: 01/03/2019 Time: 15:52 Bed 26 Private MD: Ryan Thomas V Diagnosis: Other internal derangements of left knee Presentation: 01/03 15:54 Presenting complaint: Patient states: my L knee started hurting since Saturday, reports hj swelling and pain; denies trauma to the area;. Transition of care: patient was not received from another setting of care. Onset of symptoms was January 03, 2019. Risk Assessment: Do you want to hurt yourself or someone else? Patient reports no desire to harm self or others. Initial Sepsis Screen: Does the patient meet any 2 criteria? No. Patient's initial sepsis screen is negative. Does the patient have a suspected source of infection? No. Patient's initial sepsis screen is negative. Care prior to arrival: None. 15:54 Method Of Arrival: Ambulatory 15:54 Acuity: ILIR 4 hj Triage Assessment: 15:59 General: Appears in no apparent distress. uncomfortable, Behavior is calm, cooperative, hj appropriate for age. Pain: Complains of pain in left knee Pain currently is 10 out of 10 on a pain scale. Historical: - Allergies: 15:58 prochlorperazine Edisylate; hj 15:58 Prochlorperazine Maleate; hj 15:58 pyrilamine maleate; hj 15:58 metronidazole; hj 15:58 Pamabrom; hj 15:58 sucrose; hj 15:58 sodium ferric gluconate complex; hj - Home Meds: 15:58 levothyroxine 50 mcg tab 1 tab once daily [Active]; metoprolol tartrate 25 mg Oral tab hj 1 tab once daily [Active]; famotidine 20 mg Oral tab 1 tab every 6 hours [Active]; venlafaxine 150 mg oral cp24 1 cap once daily [Active]; bupropion HCl 100 mg Oral TbER 1 tab 2 times per day [Active]; clonazepam 1 mg Oral tab 1 tab 3 times per day [Active]; estradiol 1 mg Oral tab 1 tab once daily [Active]; furosemide 20 mg Oral tab 1 tab as needed [Active]; - PSHx: 15:58 Tonsillectomy; Adenoids; whipple surgery; Right knee surgery; Hysterectomy; back hj surgery; Appendectomy; Left foot toe surgery; - Immunization history:: Adult Immunizations up to date. - Social history:: Smoking status: Patient/guardian denies using tobacco, Patient/guardian denies using alcohol. - Ebola Screening: : Patient negative for fever greater than or equal to 101.5 degrees Fahrenheit, and additional compatible Ebola Virus Disease symptoms Patient denies exposure to infectious person Patient denies travel to an Ebola-affected area in the 21 days before illness onset. Screenin:59 Abuse screen: Denies threats or abuse. Denies injuries from another. Nutritional hj screening: No deficits noted. Tuberculosis screening: No symptoms or risk factors identified. Fall Risk None identified. Assessment: 16:14 General: Appears uncomfortable, slender, well groomed, well developed, well nourished, tl3 Behavior is calm, cooperative, appropriate for age. Pain: Complains of pain in left knee. Neuro: Level of Consciousness is awake, alert, obeys commands, Oriented to person, place, time, situation, Appropriate for age. Cardiovascular: Patient's skin is warm and dry. Respiratory: Airway is patent Respiratory effort is even, unlabored, Respiratory pattern is regular, symmetrical. GI: No signs and/or symptoms were reported involving the gastrointestinal system. : No signs and/or symptoms were reported regarding the genitourinary system. EENT: No signs and/or symptoms were reported regarding the EENT system. Derm: No signs and/or symptoms reported regarding the dermatologic system. Musculoskeletal: Reports pain in left knee since Saturday, no known injury pain is behind the knee, radiates down to the foot with any movements. 17:42 Reassessment: Patient appears in no apparent distress at this time. No changes from tl3 previously documented assessment. Patient and/or family updated on plan of care and expected duration. Pain level reassessed. Patient is alert, oriented x 3, equal unlabored respirations, skin warm/dry/pink. Patient states feeling better. Patient states symptoms have improved. 18:06 Reassessment: left knee immobilizer placed, pt tolerated well. tl3 Vital Signs: 15:59 BP 115 / 58; Pulse 60; Resp 18; Temp 97.7(O); Pulse Ox 100% on R/A; Weight 48.99 kg; hj Height 5 ft. 0 in. (152.40 cm); Pain 10/10; 17:42 BP 103 / 69; Pulse 60; Resp 18; Pulse Ox 100% on R/A; tl3 18:06 BP 110 / 60; Pulse 59; Resp 18; Pulse Ox 100% on R/A; tl3 15:59 Body Mass Index 21.09 (48.99 kg, 152.40 cm) ED Course: 15:52 Patient arrived in ED. rg4 15:53 Ryan Thomas MD is Private Physician. rg4 15:55 Triage completed. hj 15:59 Arm band placed on right wrist. hj 15:59 Patient has correct armband on for positive identification. Bed in low position. Call light in reach. Side rails up X 1. Adult w/ patient. 16:11 Bari Oneil, CHRISTINA is Primary Nurse. mg2 16:14 Audrey Suarez, CHRISTINA is Primary Nurse. tl3 16:14 No provider procedures requiring assistance completed. tl3 16:18 Kaleb Vick MD is Attending Physician. gs 16:38 Knee Left 3 View XRAY In Process Unspecified. EDMS 17:05 US Extremity Venous Unilateral Ltd Sent. tl3 17:17 US Extremity Venous Unilateral Ltd In Process Unspecified. EDMS 17:48 Mehdi Alvarado MD is Referral Physician. gs 18:06 Patient did not have IV access during this emergency room visit. tl3 Administered Medications: 17:05 Drug: [place] 10 mg-325 mg 1 tabs Route: PO; tl3 18:08 Follow up: Response: Pain is decreased tl3 Outcome: 17:49 Discharge ordered by . gs 18:06 Discharged to home ambulatory. tl3 18:06 Condition: stable 18:06 Discharge instructions given to patient, family, Instructed on discharge instructions, follow up and referral plans. medication usage, Demonstrated understanding of instructions, follow-up care, medications, Prescriptions given X 1. 18:09 Patient left the ED. tl3 Signatures: Dispatcher [employer] EDMS Solomon Harris RN RN hj Garcia, Rubi rg4 Kaleb Vick MD MD Audrey Suarez RN RN tl3 Bari Oneil RN RN mg2 Corrections: (The following items were deleted from the chart) 16:01 15:59 Pulse 60bpm; Resp 18bpm; Pulse Ox 100% RA; Temp 97.7F Oral; 48.99 kg; Height 5 hj ft. 0 in.; BMI: 21.0; Pain 10/10; hj
[2019-01-03 18:13] VITALS: TEMP 97.7; O2SAT 100
[2019-01-03 18:16] VITALS: BP 110/60
== END 2019-01-03 18:09 | disposition home or self-care (01) ==
LOC: ER 15:51
DX: M23.92 Unspecified internal derangement of left knee (principal); Z88.1 Allergy status to other antibiotic agents; Z88.8 Allergy status to other drugs, medicaments and biological substances
CPT/HCPCS: 93971; 99283

== ENCOUNTER 2021-02-03 18:17 | Emergency (ER) | payer OTHER ==
--- OUTSIDE RECORDS SUMMARY | 2021-02-03 18:21 | XMS REPORT | Continuity of Care Document ---
:1960 Author Organization [facility] t Address [address] [place] [address] Care Team Providers Name Role Phone LANDON Attending Clinician Unavailable CORA Attending Clinician Unavailable UZBEK Attending Clinician Unavailable JANINE Attending Clinician Unavailable GRZEGORZ Attending Clinician Unavailable ROBBIE Attending Clinician Unavailable CORA Admitting Clinician Unavailable ROBBIE Admitting Clinician Unavailable Problems Condition Condition Condition Status Onset Resolution Last Treating Co mments Source Name Details Category Date Date Treatment Clinician Date Anemia Anemia Problem Active [facility] associated associated Linda kes - with with Memoria chronic chronic l renal renal Outpati failure failure ent Clinics Irritable Irritable Problem Active [facility] bowel bowel [facility] - syndrome syndrome Memori a with with l constipati constipati Ou tpati on and on and ent diarrhea diarrhea Clinic s Chronic Chronic Problem Active [facility] bilateral bilateral Luke s - low back low back Memori a pain pain l Outpati ent Clinics Unspecifie Unspecifie Problem Active [facility] d internal d internal Linda kes - derangemen derangemen Me moria t of left t of left l knee knee Outpati ent Clinics Raynaud Raynaud Problem Active [facility] disease disease [facility] Left Left Problem Active [facility] sciatic sciatic [facility] - nerve pain nerve pain Me moria l Outpati ent Clinics Pain, Pain, Problem Active [facility] joint, joint, [facility] - knee, left knee, left Me moria l Outpati ent Clinics Depression Depression Problem Active [facility] with with [facility] - anxiety anxiety [facility]oria l Outpati ent Clinics Hyperparat Hyperparat Problem Active [facility] hyroidism hyroidism Luke s - [facility] l Outpati ent Clinics Elevated Elevated Problem Active [facility] t liver liver [facility] - enzymes enzymes [facility] l Outpat[facility] ent Clinics Acute Acute Problem Active [facility] congestive congestive Linda kes - heart heart Memoria failure, failure, l unspecifie unspecifie Ou tpati d heart d heart ent failure failure Clinics type type Cardiac Cardiac Problem Active [facility] pacemaker pacemaker Luke s - Memoria [facility] Fatigue Fatigue Problem Active [facility] kes - Memoria [facility] Cardiac Cardiac Problem Active [facility] Problem Active [facility] deficiency deficiency Linda kes - [facility] Allergic Allergic Problem Active [facility] rhinitis, rhinitis, Luke s - seasonal seasonal Memori a l [facility] Pancreatic Pancreatic Problem Active [facility] cancer cancer [facility] Hypothyroi Hypothyroi Problem Active [facility] dism dism [facility] Chronic Chronic Problem Active [facility] kidney kidney [facility] - disease disease [facility] (CKD) (CKD) l stage stage Outpati G3b/A1, G3b/A1, ent moderately moderately Cl inics decreased decreased glomerular glomerular filtration filtration rate (GFR) rate (GFR) between between 30-44 30-44 mL/min/1.7 mL/min/1.7 3 square 3 square meter and meter and albuminuri albuminuri a a creatinine creatinine ratio less ratio less than 30 than 30 mg/g mg/g Solitary Solitary Problem Active [facility] pulmonary pulmonary Luke s - nodule nodule [facility] Chronic Chronic Problem Active [facility] GERD GERD [facility] Allergies, Adverse Reactions, Alerts Allergy Allergy Status Severity Reaction(s) Onset Inactive Treating Comm ents Source Name Type Date Date Clinician Midol Adverse Active Info Not [facility] Reaction Available [facility] Seroquel Adverse Active Out of Body [facility] Reaction feeling [facility] Flagyl Adverse Active vomiting [facility] Reaction [facility] Biaxin Adverse Active Info Not [facility] Reaction Available [facility] Medications Ordered Filled Start Stop Current Ordering Indication Dosage Frequency Signature Comments Components Source Medication Medication Date Date Medication? Clinician (SIG) Name Name Tramadol Tramadol 2018- 2019- No Mehdi [address] [facility] HCl HCl 2-20 - Alvarado as needed [facility] - 00:00: 00:00 Memoria 00 :00 [facility] Venlafaxine Venlafaxine Yes Mehdi not [facility] HCl ER HCl ER [place] defined [facility] - [facility] l Outpati ent Clinics Metoprolol Metoprolol Yes Mehdi not [facility] Tartrate Tartrate [place] defined Linda kes - Memoria l Outpati ent Clinics Famotidine Famotidine Yes Mehdi not [facility] [place] defined [facility] Furosemide Furosemide Yes Mehdi not [facility] [place] defined [facility] Pepcid Pepcid Yes Mehdi 1 tablet [facility] [place] at bedtime [facility] Effexor XR Effexor XR Yes Mehdi [address] [facility] [place] with food [facility] Acetaminoph Acetaminoph Yes Mehdi not [facility] en-Codeine en-Codeine [place] defined [facility] Levothyroxi Levothyroxi Yes Mehdi not [facility] ne Sodium ne Sodium [place] defined [facility] Zofran Zofran Yes Mehdi not [facility] [place] defined [facility] Ondansetron Ondansetron Yes Mehdi not [facility] HCl HCl [place] defined [facility] Wellbutrin Wellbutrin Yes Mehdi [address] [facility] SR SR [place] in the [facility] - morning [facility] Outpati ent Clinics Klonopin Klonopin Yes Mehdi [address] [place] [facility] Clonazepam Clonazepam Yes Mehdi not [facility] [place] defined [facility] Estradiol Estradiol Yes Mehdi [address] [facility] [place] [facility] Toprol XL Toprol XL Yes Mehdi [address] [facility] [place] [facility] Synthroid Synthroid Yes Mehdi take [address] [place] tablet one [facility] - time daily Memoria in the l morning on Outpati an empty ent stomach Clinics Promethazin Promethazin Yes Mehdi not [facility] e HCl e HCl [place] defined [facility] BuPROPion BuPROPion Yes Mehdi not [facility] HCl ER (SR) HCl ER (SR) [place] defined [facility] Trazodone Trazodone Yes Mehdi 1/[address] [facility] HCl HCl [place] at bedtime [facility] - as needed Mem[facility] l Outpati ent Clinics Procedures This patient has no known procedures. Encounters Start End Encounter Admission Attending Care Care Encounter Source Date/Time Date/Time Type Type Clinicians Facility Department ID 2021-01-26 2021-01-26 Outpatient [facility] [id number] [place] 00:00:00 00:00:[address] 2020-10-21 2020-10-21 Outpatient NAVARRETE, [facility] [id number] [place] 00:00:00 00:00:00 LUCERO [address] 2020-09-21 2020-09-27 Inpatient SHEPHERD, [facility] [id number] [place] 00:00:00 00:00:00 PARAMJIT [address] 2020-07-27 2020-07-27 Outpatient UZBEK, [facility] [id number] [place] 00:00:00 00:00:00 ISABELL [address] 2020-07-27 2020-07-27 Outpatient MEHTA, [facility] [id number] [place] 00:00:00 00:00:00 JASON [address] 2020-07-08 2020-07-08 Outpatient UZBEK, [facility] [id number] [place] 00:00:00 00:00:00 ISABELL [address] 2020-07-08 2020-07-08 Outpatient UZBEK, [facility] [id number] [place] 00:00:00 00:00:00 ISABELL [address] 2020-07-08 2020-07-08 Outpatient UZBEK, [facility] [id number] [place] 00:00:00 00:00:00 ISABELL [address] 2020-07-08 2020-07-08 Outpatient UZBEK, [facility] [id number] [place] 00:00:00 00:00:00 ISABELL [address] 2020-07-08 2020-07-08 Outpatient UZBEK, [facility] [id number] [place] 00:00:00 00:00:00 ISABELL [address] 2020-07-08 2020-07-08 Outpatient UZBEK, [facility] [id number] [place] 00:00:00 00:00:00 ISABELL [address] 2020-04-29 2020-04-29 Outpatient MEHTA, [facility] [id number] [place] 00:00:00 00:00:00 JASON [address] 2020-04-07 2020-04-07 Outpatient [facility] [id number] [place] 00:00:00 00:00:[address] 2020-04-05 2020-04-05 Outpatient GRZEGORZ, [facility] [id number] [place] 00:00:00 00:00:00 AHMED [address] 2020-04-05 2020-04-05 Outpatient MEHTA, [facility] [id number] [place] 00:00:00 00:00:00 JASON [address] 2019-12-30 2019-12-30 [facility] [id number] 14:55:00 14:55:00 t [facility] and [facility] 2019-10-28 2019-11-05 Inpatient AVALOS, [facility] [id number] [place] 00:00:00 00:00:00 RA [address] 2019-01-07 2019-01-07 [facility] [id number] [facility] 08:00:00 08:00:00 t [facility] Results This patient has no known results.
[2021-02-03 20:15] LABS: Urine Blood NEGATIVE (NEG); Urine Glucose NEGATIVE (NEG); Urine Protein NEGATIVE (NEG)
[2021-02-03] MEDS ORDERED: ONDANSETRON 4 MG/2 ML VIAL ONE (20:15)
[2021-02-03] MEDS ORDERED: MORPHINE 4 MG/ML SYR ONE (20:15)
[2021-02-03 20:24] LABS: Absolute Lymphocytes (CBC) 1.5 K/uL (0.7-4.9); Basophils % 0.4 % (0-1.3); Hematocrit 26.6 % (36.0-45.0); Lymphocytes % 27.8 % (15.3-44.8); MPV 8.4 fL (7.6-11.3); RBC Red Blood Cell Count 3.27 M/uL (3.86-4.86)
[2021-02-03 20:25] LABS: Protime INR 0.9
[2021-02-03 20:27] LABS: ALT/SGPT 27 U/L (12-78); AST/SGOT 27 U/L (15-37); Albumin 3.2 g/dL (3.4-5.0); Alkaline Phosphatase 84 U/L (45-117); BUN Blood Urea Nitrogen 30 mg/dL (7-18); Bicarbonate 27 mmol/L (21-32); Bilirubin Direct < 0.1 mg/dL (0-0.2); Bilirubin Total 0.2 mg/dL (0.2-1.0); Glucose Level 78 mg/dL (74-106); Magnesium 2.3 mg/dL (1.8-2.4); NT PRO-BNP 609 pg/mL (<125); Potassium 4.7 mmol/L (3.5-5.1); Sodium Level 142 mmol/L (136-145); Troponin (Emerg Dept Use Only) < 0.02 ng/mL (0.0-0.045)
--- NOTE | 2021-02-03 20:40 | RAD REPORT ---
EXAM DESCRIPTION: RAD - Chest Single View - 02/03/2021 8:19 pm CLINICAL HISTORY: RIB PAIN - LEFT Chest pain. COMPARISON: Chest Single View dated 09/16/2017; CHEST SINGLE VIEW dated 08/18/2014; CHEST SINGLE VIEW dated 08/03/2014; CHEST SINGLE VIEW dated 08/02/2014; IMP 3D DIAG FRANK RT UNI W/CAD dated 09/09/2019; F ollow Up Breast Axilla Comp dated 09/09/2019 FINDINGS: Portable technique limits examination quality. The lungs are grossly clear. The heart is normal in size. No displaced fractures.Left-sided port cath eter right-sided pacer noted. IMPRESSION: No acute intrathoracic process suspected.
--- NOTE | 2021-02-03 23:03 | EDPHYS ---
Physician Documentation [facility] Name: Jennifer Haddad Age: 60 yrs Sex: Female : 1960 Arrival Date: 02/03/2021 Time: 18:19 Bed 17 Private MD: Ryan Thomas V ED Physician Salvatore Baugh HPI: 02/03 20:30 This 60 yrs old Female presents to ER via Ambulatory with complaints of Flank mh7 Pain, Back Pain. 20:30 The patient complains of pain in the left flank. The pain does not radiate. Onset: The mh7 symptoms/episode began/occurred this morning, today. Modifying factors: The symptoms are alleviated by nothing. the symptoms are aggravated by movement, palpation/percussion. 20:31 Associated signs and symptoms: Pertinent negatives: diarrhea, dizziness, dysuria, mh7 fever, urinary frequency, headache, hematuria, nausea, pain radiating to the lower extremities, vomiting. Severity of pain: At its worst the pain was moderate this morning, today, in the emergency department the pain is unchanged. Historical: - Allergies: 18:32 METRONIDAZOLE; ca1 18:32 Pamabrom; ca1 18:32 prochlorperazine Edisylate; ca1 18:32 Prochlorperazine Maleate; ca1 18:32 pyrilamine maleate; ca1 18:32 sodium ferric gluconate complex; ca1 18:32 sucrose; ca1 18:32 Compazine; ca1 18:32 Iron Infusions; ca1 - Home Meds: 18:32 venlafaxine 150 mg Oral cp24 1 cap once daily [Active]; bupropion HCl 100 mg Oral TbER ca1 1 tab 2 times per day [Active]; Lorazepam Oral [Active]; mirtazapine 7.5 mg Oral tab 1 tabs once daily [Active]; levothyroxine 75 mcg oral tab 1 tab once daily [Active]; metoprolol tartrate 25 mg Oral tab 1 tab once daily [Active]; estradiol 1 mg Oral tab 1 tab once daily [Active]; paricalcitol 1 mcg oral cap 1 cap 3 times per wk [Active]; Creon 24,000-76,000 -120,000 unit oral cpDR [Active]; furosemide 40 mg oral tab 1 tab once daily [Active]; - PMHx: 18:32 tachycardia; pacemaker; pancreatic Cancer; ca1 18:34 CHF; Hypothyroidism; Depression; Anxiety; GERD; Osteoporosis; ca1 - PSHx: 18:32 Tonsillectomy; Adenoids; whipple surgery; Right knee surgery; Hysterectomy; back ca1 surgery; Appendectomy; Left foot toe surgery; 18:34 Cholecystectomy; ca1 - Immunization history:: Flu vaccine is up to date. - Social history:: Smoking status: Patient denies any tobacco usage or history of. ROS: 20:31 Constitutional: Negative for fever, chills, and weight loss, Eyes: Negative for injury, mh7 pain, redness, and discharge, ENT: Negative for injury, pain, and discharge, Neck: Negative for injury, pain, and swelling, Cardiovascular: Negative for chest pain, palpitations, and edema, Respiratory: Negative for shortness of breath, cough, wheezing, and pleuritic chest pain, Abdomen/GI: Negative for abdominal pain, nausea, vomiting, diarrhea, and constipation, : Negative for injury, bleeding, discharge, and swelling, MS/Extremity: Negative for injury and deformity, Skin: Negative for injury, rash, and discoloration, Neuro: Negative for headache, weakness, numbness, tingling, and seizure, Psych: Negative for depression, anxiety, suicide ideation, homicidal ideation, and hallucinations, Allergy/Immunology: Negative for hives, rash, and allergies, Endocrine: Negative for neck swelling, polydipsia, polyuria, polyphagia, and marked weight changes, Hematologic/Lymphatic: Negative for swollen nodes, abnormal bleeding, and unusual bruising. Exam: 20:31 Constitutional: This is a well developed, well nourished patient who is awake, alert, mh7 and in no acute distress. Head/Face: Normocephalic, atraumatic. Eyes: Pupils equal round and reactive to light, extra-ocular motions intact. Lids and lashes normal. Conjunctiva and sclera are non-icteric and not injected. Cornea within normal limits. Periorbital areas with no swelling, redness, or edema. Neck: Trachea midline, no thyromegaly or masses palpated, and no cervical lymphadenopathy. Supple, full range of motion without nuchal rigidity, or vertebral point tenderness. No Meningismus. 20:31 Chest/axilla: Normal chest wall appearance and motion. Nontender with no deformity. No lesions are appreciated. 20:31 Respiratory: Lungs have equal breath sounds bilaterally, clear to auscultation and percussion. No rales, rhonchi or wheezes noted. No increased work of breathing, no retractions or nasal flaring. Abdomen/GI: Soft, non-tender, with normal bowel sounds. No distension or tympany. No guarding or rebound. No evidence of tenderness throughout. 20:31 Skin: Warm, dry with normal turgor. Normal color with no rashes, no lesions, and no evidence of cellulitis. MS/ Extremity: Pulses equal, no cyanosis. Neurovascular intact. Full, normal range of motion. Neuro: Awake and alert, GCS 15, oriented to person, place, time, and situation. Cranial nerves II-XII grossly intact. Motor strength 5/5 in all extremities. Sensory grossly intact. Cerebellar exam normal. Normal gait. Psych: Awake, alert, with orientation to person, place and time. Behavior, mood, and affect are within normal limits. 20:31 Back: pain, that is moderate, of the left subscapular area and left mid back, ROM is painful, with all movement, normal spinal alignment noted, CVA tenderness, is absent, vertebral tenderness, is not appreciated, muscle spasm, is appreciated in the left subscapular area and left mid back, Straight leg raises: of both lower extremities does not illicit pain. Vital Signs: 18:23 BP 111 / 51; Pulse 71; Resp 16 S; Temp 97.6(TE); Pulse Ox 100% on R/A; Weight 55.79 kg ca1 (R); Height 4 ft. 11 in. (149.86 cm) (R); Pain 8/10; 20:15 BP 105 / 56; Pulse 61; Resp 18; Pulse Ox 99% on R/A; mg2 21:03 BP 102 / 60; Pulse 61; Resp 18; Pulse Ox 100% on R/A; mg2 22:32 BP 110 / 60; Pulse 62; Resp 18; Pulse Ox 100% on R/A; mg2 18:23 Body Mass Index 24.84 (55.79 kg, 149.86 cm) ca1 MDM: 23:00 Differential diagnosis: nephrolithiasis, pyelonephritis, UTI, back Pain, flank Pain. [facility] Data reviewed: vital signs, nurses notes, old medical records, lab test result(s), CBC, electrolytes, urinalysis, EKG, radiologic studies, CT scan, plain films. Data interpreted: Pulse oximetry: on room air is 100 %. Interpretation: normal. Counseling: I had a detailed discussion with the patient and/or guardian regarding: the historical points, exam findings, and any diagnostic results supporting the discharge/admit diagnosis, lab results, radiology results, the need for outpatient follow up, to return to the emergency department if symptoms worsen or persist or if there are any questions or concerns that arise at home. Response to treatment: the patient's symptoms have markedly improved after treatment. 23:03 Patient medically screened. [facility] 02/03 19:38 Order name: Basic Metabolic Panel [facility] 02/03 19:38 Order name: CBC with Diff [facility] 02/03 19:38 Order name: LFT's [facility] 02/03 19:38 Order name: Magnesium [facility] 02/03 19:38 Order name: NT PRO-BNP; Complete Time: 20:53 [facility] 02/03 19:38 Order name: PT-INR; Complete Time: 20:53 [facility] 02/03 19:38 Order name: Troponin (emerg Dept Use Only); Complete Time: 20:53 [facility] 02/03 19:38 Order name: XRAY Chest (1 view); Complete Time: 20:53 [facility] 02/03 19:39 Order name: Basic Metabolic Panel; Complete Time: 20:53 [facility] 02/03 19:39 Order name: CBC with Automated Diff; Complete Time: 20:53 [facility] 02/03 19:39 Order name: Liver (Hepatic) Function; Complete Time: 20:53 [facility] 02/03 19:39 Order name: Magnesium; Complete Time: 20:53 [facility] 02/03 19:57 Order name: Urine Dipstick--Ancillary (enter results); Complete Time: 20:53 3 02/03 19:38 Order name: EKG; Complete Time: 19:40 7 02/03 19:38 Order name: Cardiac monitoring; Complete Time: 20:15 7 02/03 19:38 Order name: EKG - Nurse/Tech; Complete Time: 20:15 7 02/03 19:38 Order name: IV Saline Lock; Complete Time: 20:15 7 02/03 19:38 Order name: Labs collected and sent; Complete Time: 20:15 [facility] 02/03 19:38 Order name: O2 Per Protocol; Complete Time: 20:15 [facility] 02/03 19:38 Order name: O2 Sat Monitoring; Complete Time: 20:15 [facility] 02/03 19:40 Order name: Urine Dipstick-Ancillary (obtain specimen); Complete Time: 20:14 [facility] 02/03 21:03 Order name: Chest Abd Pelvis Wo Con EDMS Administered Medications: 20:00 Drug: Zofran (Ondansetron) 4 mg Route: IVP; Site: right antecubital; mg2 21:04 Follow up: Response: No adverse reaction mg2 20:14 Drug: morphine 4 mg Route: IVP; Site: right antecubital; mg2 21:04 Follow up: Response: No adverse reaction; Marked relief of symptoms mg2 Disposition: 02/03/21 23:03 Discharged to Home. Impression: Upper Back Pain, Flank Pain-Left, Constipation. - Condition is Stable. - Discharge Instructions: Constipation, Adult, Ojxa-jh-Orgy, Back Pain, Adult, Bixt-ko-Zwva, Flank Pain, Eagv-[id number]. - Prescriptions for Dulcolax 10 mg Rectal Suppository - insert 1 suppository by RECTAL route every 6 hours As needed; 5 suppository. - Medication Reconciliation Form, Thank You Letter, Antibiotic Education, Prescription Opioid Use form. - Follow up: Private Physician; When: 1 - 2 days; Reason: Worsening of condition, Recheck today's complaints, Continuance of care, Re-evaluation by your physician. - Problem is new. - Symptoms have improved. Signatures: Dispatcher [employer] EDIA Bari Oneil RN RN [facility] Destini Salvador RN RN [facility] Salvatore Baugh MD MD 7 Corrections: (The following items were deleted from the chart) 21:03 20:56 Thorax Wo Con+CT.RAD.BRZ ordered. [facility] EDMS 21:04 20:56 Abdomen Pelvis Wo Con+CT.RAD.BRZ ordered. [facility] EDMS 23:26 23:03 02/03/2021 23:03 Discharged to Home. Impression: Upper Back Pain; Flank mg2 Pain-Left; Constipation. Condition is Stable. Forms are Medication Reconciliation Form, Thank You Letter, Antibiotic Education, Prescription Opioid Use. Follow up: Private Physician; When: 1 - 2 days; Reason: Worsening of condition, Recheck today's complaints, Continuance of care, Re-evaluation by your physician. Problem is new. Symptoms have improved. mh7
--- NOTE | 2021-02-03 23:03 | ER ---
Nurse's Notes [facility] Name: Jennifer Haddad Age: 60 yrs Sex: Female : 1960 Arrival Date: 02/03/2021 Time: 18:19 Bed 17 Private MD: Ryan Thomas V Diagnosis: Upper Back Pain;Flank Pain-Left;Constipation Presentation: 02/03 18:23 Chief complaint: Patient states: I have Stage IV kidney failure. R kidney is no good. L ca1 kidney only working at 14%. Woke up this morning, L flank pain with has progressed throughout the day. I can taste salt in my mouth and a metallic taste and I've gained 5 lbs since yesterday and I am already on diuretics. 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 Coronavirus screen: Client denies travel out of the [place] in the last 14 days. At this time, the client does not indicate any symptoms associated with coronavirus-19. Ebola Screen: Patient negative for fever greater than or equal to 101.5 degrees Fahrenheit, and additional compatible Ebola Virus Disease symptoms Patient denies exposure to infectious person. Patient denies travel to an Ebola-affected area in the 21 days before illness onset. No symptoms or risks identified at this time. Initial Sepsis Screen: Does the patient meet any 2 criteria? No. Patient's initial sepsis screen is negative. Does the patient have a suspected source of infection? No. Patient's initial sepsis screen is negative. Risk Assessment: Do you want to hurt yourself or someone else? Patient reports no desire to harm self or others. Onset of symptoms was February 03, 2021. 18:23 Method Of Arrival: Ambulatory ca1 18:23 Acuity: ILIR 3 ca1 Historical: - Allergies: 18:32 METRONIDAZOLE; ca1 18:32 Pamabrom; ca1 18:32 prochlorperazine Edisylate; ca1 18:32 Prochlorperazine Maleate; ca1 18:32 pyrilamine maleate; ca1 18:32 sodium ferric gluconate complex; ca1 18:32 sucrose; ca1 18:32 Compazine; ca1 18:32 Iron Infusions; ca1 - Home Meds: 18:32 venlafaxine 150 mg Oral cp24 1 cap once daily [Active]; bupropion HCl 100 mg Oral TbER ca1 1 tab 2 times per day [Active]; Lorazepam Oral [Active]; mirtazapine 7.5 mg Oral tab 1 tabs once daily [Active]; levothyroxine 75 mcg oral tab 1 tab once daily [Active]; metoprolol tartrate 25 mg Oral tab 1 tab once daily [Active]; estradiol 1 mg Oral tab 1 tab once daily [Active]; paricalcitol 1 mcg oral cap 1 cap 3 times per wk [Active]; Creon 24,000-76,000 -120,000 unit oral cpDR [Active]; furosemide 40 mg oral tab 1 tab once daily [Active]; - PMHx: 18:32 tachycardia; pacemaker; pancreatic Cancer; ca1 18:34 CHF; Hypothyroidism; Depression; Anxiety; GERD; Osteoporosis; ca1 - PSHx: 18:32 Tonsillectomy; Adenoids; whipple surgery; Right knee surgery; Hysterectomy; back ca1 surgery; Appendectomy; Left foot toe surgery; 18:34 Cholecystectomy; ca1 - Immunization history:: Flu vaccine is up to date. - Social history:: Smoking status: Patient denies any tobacco usage or history of. Screenin:39 Abuse screen: Denies threats or abuse. Denies injuries from another. Nutritional mg2 screening: No deficits noted. Tuberculosis screening: No symptoms or risk factors identified. Fall Risk IV access (20 points). Assessment: 19:37 General: Appears in no apparent distress. comfortable, Behavior is calm, cooperative. mg2 Pain: Complains of pain in back. Neuro: Level of Consciousness is awake, alert, obeys commands, Oriented to person, place, time, situation. Cardiovascular: Capillary refill < 3 seconds Patient's skin is warm and dry. Respiratory: Airway is patent Respiratory effort is even, unlabored. GI: No signs and/or symptoms were reported involving the gastrointestinal system. : Reports pain in bilateral flank(s). EENT: No signs and/or symptoms were reported regarding the EENT system. Derm: Skin is intact, is healthy with good turgor, Skin is pink, warm \T\ dry. normal. Musculoskeletal: Circulation, motion, and sensation intact. Capillary refill < 3 seconds. 21:05 Reassessment: Patient appears in no apparent distress at this time. Patient and/or mg2 family updated on plan of care and expected duration. Pain level reassessed. Vital Signs: 18:23 BP 111 / 51; Pulse 71; Resp 16 S; Temp 97.6(TE); Pulse Ox 100% on R/A; Weight 55.79 kg ca1 (R); Height 4 ft. 11 in. (149.86 cm) (R); Pain 8/10; 20:15 BP 105 / 56; Pulse 61; Resp 18; Pulse Ox 99% on R/A; mg2 21:03 BP 102 / 60; Pulse 61; Resp 18; Pulse Ox 100% on R/A; mg2 22:32 BP 110 / 60; Pulse 62; Resp 18; Pulse Ox 100% on R/A; mg2 18:23 Body Mass Index 24.84 (55.79 kg, 149.86 cm) ca1 ED Course: 18:19 Patient arrived in ED. am2 18:19 Ryan Thomas MD is Private Physician. am2 18:27 Triage completed. ca1 18:34 Arm band placed on right wrist. ca1 19:17 Salvatore Baugh MD is Attending Physician. mh7 19:35 Bari Oneil RN is Primary Nurse. mg2 19:39 Patient has correct armband on for positive identification. mg2 19:39 No provider procedures requiring assistance completed. mg2 19:45 Inserted saline lock: 22 gauge in right antecubital area, using aseptic technique. mg2 Blood collected. 20:19 XRAY Chest (1 view) In Process Unspecified. EDMS 21:40 Chest Abd Pelvis Wo Con In Process Unspecified. EDMS 23:26 IV discontinued, intact, bleeding controlled, No redness/swelling at site. Pressure mg2 dressing applied. Administered Medications: 20:00 Drug: Zofran (Ondansetron) 4 mg Route: IVP; Site: right antecubital; mg2 21:04 Follow up: Response: No adverse reaction mg2 20:14 Drug: morphine 4 mg Route: IVP; Site: right antecubital; mg2 21:04 Follow up: Response: No adverse reaction; Marked relief of symptoms mg2 Outcome: 23:03 Discharge ordered by . mh7 23:26 Discharged to home ambulatory. mg2 23:26 Condition: stable 23:26 Discharge instructions given to patient, Instructed on discharge instructions, follow up and referral plans. medication usage, Demonstrated understanding of instructions, follow-up care, medications, Prescriptions given X 1. 23:26 Patient left the ED. mg2 Signatures: Dispatcher [employer] NGOCMS Vivian Mixon am2 Bari Oneil RN RN mg2 Destini Salvador RN RN ca1 Salvatore Baugh MD MD 7
[2021-02-03 23:32] VITALS: TEMP 97.6
[2021-02-03 23:35] VITALS: O2SAT 100
[2021-02-03 23:36] VITALS: BP 110/60
--- NOTE | 2021-02-04 13:05 | RAD REPORT ---
EXAM DESCRIPTION: Chest Abd Pelvis Wo Con RadLex: CT CHEST ABDOMEN PELVIS WITHOUT IV CONTRAST CLINICAL HISTORY: Left midback/flank pain;Pain. History of prior Whipple procedure. COMPARISON: None. TECHNIQUE: CT of the chest, abdomen, and pelvis was performed following without contrast. Oral contr ast was not administered. Axial, coronal, and sagittal reconstructions were created and sent to PACS. This exam was performed according to our departmental dose-optimization program, which includes autom ated exposure control, adjustment of the mA and/or kV according to patient size and/or use of iterati ve reconstruction technique. FINDINGS: Lungs and pleura: Basilar left lower lobe 0.3 cm pulmonary nodule. Benign-appearing perifi ssural nodule/lymph node on the left. No pulmonary consolidation. No pleural effusion. No pneumothora x. Mediastinum and neck: No mediastinal lymphadenopathy identified by CT size criteria. Unremarkable rylee earance of the thyroid gland. Cardiac: No cardiomegaly or pericardial effusion. No thoracic aortic aneurysm. Left IJ infusion port catheter terminates in the distal SVC. Pacemaker leads. Hepatobiliary: No obvious hepatic lesion identified on this noncontrast exam. The gallbladder is surg ically absent. No pathologic biliary ductal dilatation. Mild pneumobilia, postsurgical in etiology. Pancreas: Surgically absent. Spleen: Unremarkable. Gastrointestinal: No evidence of bowel obstruction or perienteric inflammation. The appendix is surgi radha absent. Moderate amount of fecal material in the colon and rectum. Adrenals: No abnormality identified in either adrenal gland. Renal: Tiny partially exophytic hypodensity of the interpolar left kidney, too small to accurately ch aracterize but statistically likely a cyst. No hydronephrosis or urolithiasis. Bladder/Reproductive: Unremarkable appearance of the urinary bladder by CT technique. Prior hysterect micah. Vascular/Lymphatics: No lymphadenopathy identified by CT size criteria. Abdominal aorta is normal in caliber. Musculoskeletal: No concerning osseous lesion identified. Bilateral breast implants. Lower lumbar spi ne posterior fusion hardware. Fluid / peritoneum: No significant free fluid. No free intraperitoneal air identified. IMPRESSION: 1. No acute abnormality identified in the chest, abdomen, or pelvis by CT. 2. Moderate amount of fecal material in the colon and rectum. Correlate for constipation. 3. Prior Whipple procedure, with expected mild pneumobilia. 4. Tiny left lower lobe pulmonary nodule. Normally, no routine follow-up imaging is recommended. Ho wever, these guidelines do not apply to immunocompromised patients and patients with cancer. Follow u p in patients with significant comorbidities as clinically warranted (Reference: Radiology. 2017; 284 (1):228-43). Electronically signed by: Loren Molina MD 02/03/2021 9:56 PM CDT Due to temporary technical issues with the PACS/Fluency reporting system, reports are being signed by the in house radiologist without review as a courtesy to ensure prompt reporting. The interpreting r adiologist is fully responsible for the content of the report.
== END 2021-02-03 23:26 | disposition home or self-care (01) ==
LOC: ER 18:17
DX: K59.00 Constipation, unspecified (principal); M54.9 Dorsalgia, unspecified; I50.9 Heart failure, unspecified; E03.9 Hypothyroidism, unspecified; F41.8 Other specified anxiety disorders; Z85.07 Personal history of malignant neoplasm of pancreas; Z95.0 Presence of cardiac pacemaker; Z88.8 Allergy status to other drugs, medicaments and biological substances
CPT/HCPCS: 93005; 85025; 80048; 36415; 83735; 85610; 80076; 81003; 84484; 83880; 71250; 74176; 71045; 96375; 96374; 99284; J2405

== ENCOUNTER 2022-02-16 09:33 | Emergency (ER) | payer OTHER ==
--- OUTSIDE RECORDS SUMMARY | 2022-02-16 09:37 | XMS REPORT | Continuity of Care Document ---
:1960 Author Organization [facility] t Address [address] [place] [address] Care Team Providers Name Role Phone Walter TORRES Primary Care Physician Unavailable ESTELLE Attending Clinician Unavailable Only, Test Attending Clinician Unavailable Jesse RIBEIRO Attending Clinician JESSE Attending Clinician Unavailable Doctor Unassigned, Name Attending Clinician Unavailable HOPE Attending Clinician Unavailable CHANTEL Attending Clinician Unavailable SUNDAR_ALIS_Josemanuel_Kurt Attending Clinician Unavailable JULIA Attending Clinician Unavailable LANDON Attending Clinician Unavailable Francesco_Glenda Attending Clinician Unavailable CORA Attending Clinician Unavailable MD CORA P. Attending Clinician Unavailable TELUGU Attending Clinician Unavailable JANINE Attending Clinician Unavailable GRZEGORZ Attending Clinician Unavailable ROBBIE Attending Clinician Unavailable ESTELLE Admitting Clinician Unavailable SUNDAR_ALIS_Josemanuel_Kurt Admitting Clinician Unavailable HOPE Admitting Clinician Unavailable Francesco_Glenda Admitting Clinician Unavailable CORA Admitting Clinician Unavailable MD CORA P. Admitting Clinician Unavailable ROBBIE Admitting Clinician Unavailable Payers Payer Name Policy Type Policy Number Effective Date Expiration Date S ource [employer] (MEDICARE [id number] REPLACEMENT/ADVANTAGE - PPO) [employer] - CHOICE (PPO) [id number] Problems Condition Condition Condition Status Onset Resolution Last Treating Co mments Source Name Details Category Date Date Treatment Clinician Date Toxic Toxic Disease Active Univers metabolic metabolic 2- [place]y [place] [facility] Metabolic Metabolic Disease Active Uni vers acidosis acidosis 2- ity of 00:00: [place] [facility] Branch Overdose Overdose Disease Active Unive rs 2- ity of 00:00: [place] 00 Medical Branch Suicidal Suicidal Disease [facility] overdose, overdose, 2- ity of initial initial 00:00: [place] encounter encounter 00 [facility] [place] [facility] Anemia Anemia Problem Active [facility] associated [...] St pacemaker pacemaker [facility] Fatigue Fatigue Problem Active [facility] Cardiac Cardiac Problem Active [facility] arrhythmia arrhythmia [facility] Iron Iron Problem Active [facility] deficiency deficiency [facility] Allergic Allergic Problem Active [facility] t rhinitis, rhinitis, [facility] - seasonal seasonal [facility] Pancreatic Pancreatic Problem Active [facility] cancer cancer [facility] Hypothyroi Hypothyroi Problem Active [facility] dism dism [facility] Chronic Chronic Problem Active [facility] kidney kidney [facility] - disease disease Memoria (CKD) (CKD) l stage stage Outpati G3b/A1, [...] pulmonary pulmonary Luke s - nodule nodule [facility] Chronic Chronic Problem Active [facility] GERD GERD [facility] Allergies, Adverse Reactions, Alerts Allergy Allergy Status Severity Reaction(s) Onset Inactive Treating Comm ents Source Name Type Date Date Clinician CLARITHR DRUG Active Hives Univers OMYCIN INGREDI 02-19 ity of 00:00: [place] 00 [facility] [place] Clarithr Propensi Active Hives Univer s omycin ty to 02-19 ity of adverse 00:00: [place] reaction 00 [facility] METRONID DRUG Active N/V Univers AZOLE INGREDI 12-08 ity of HCL 00:00: [place] 00 [facility] [place] ACETAMIN DRUG Active Other-Cmnt Univ ers OPHEN-PA 12-08 ity of MABROM 00:00: [place] 00 [facility] [place] Metronid Propensi Active Nausea Univer s azole ty to and/or 12-08 ity of Hcl adverse Vomiting 00:00: [place] reaction 00 [facility] Acetamin Propensi Active Other - See hypotens i Univers ophen-Pa ty to comments 12-08 on ity of mabrom adverse 00:00: [place] reaction 00 Medical s Branch PROCHLOR DRUG Active Anxiety Univers PERAZINE INGREDI 05-16 ity of EDISYLAT 00:00: [place] E 00 Medical Branch Prochlor Propensi Active Anxiety Unive rs perazine ty to 05-16 ity of Edisylat adverse 00:00: [place] e reaction 00 [facility] Flagyl Adverse Active vomiting [facility] Biaxin Adverse Active Info Not [facility] Reaction Available [facility] Midol Adverse Active Info Not [facility] Reaction Available [facility] Seroquel Adverse Active Out of Body [facility] Reaction feeling [facility] Social History Social Habit Start Date Stop Date Quantity Comments Source History SDOH University o f Alcohol Frequency [place] M [facility] History SDNM University o f Alcohol Std [place] [facility] Drinks Branch History SDNM University o f Alcohol Binge [place] [facility] Exposure to Not sure [facility] SARS-CoV-2 [place] Medical (event) Branch Tobacco use and 2017-12-20 2017-12-20 Never used Universit y of exposure 00:00:00 00:00:00 [facility] Alcohol intake 2017-12-20 2017-12-20 Current University of 00:00:00 00:00:00 non-drinker of [facility] alcohol (finding) Branch Alcohol Comment 2017-12-20 2017-12-20 possibly former [facility] ersity of 00:00:00 00:00:00 alcoholic per [place] [facility] family Branch Sex Assigned At [birth year] Universit y of 00:00:00 00:00:00 [facility] Smoking Status Start Date Stop Date Source Never smoker [facility] Medications Ordered Filled Start Stop Current Ordering Indication Dosage Frequency Signature Comments Components Source Medication Medication Date Date Medication? Clinician (SIG) Name Name Tramadol Tramadol 2019- No Mehdi [address] HCl HCl 01-07 [place] as needed [facility] - 00:00: 00:00 Memoria 00 :00 [facility] buPROPion Yes 100mg Take 100 Uni vers SR 2-07 mg by ity of (WELLBUTRIN 15:44: mouth [place] SR) 150 mg 14 daily. Medical SR tablet Branch metoprolol Yes 25mg Take 25 mg U nivers succinate 2-07 by mouth 2 ity of XL (TOPROL 15:44: (two) [place] XL) 25 mg 14 times Medical 24 hr daily. Branch tablet clonazePAM Yes 1mg Take 1 mg Un anai (KLONOPIN) 2-07 by mouth 2 ity of 1 mg tablet 15:44: (two) [place] 14 times Medical daily. Branch estradiol Yes 1mg Take 1 mg Uni vers (ESTRACE) 2-07 by mouth ity of 0.5 mg 15:44: daily. [place] tablet 14 Medical Branch pantoprazol 2018-0 Yes 40mg Take 40 mg Univers e 2-07 by mouth ity of (PROTONIX) 15:44: daily. [place] 40 mg EC 14 Medical tablet Branch LIPASE/PROT 2018-0 Yes Take by Un anai EASE/AMYLAS 2-07 mouth. ity of E (CREON 15:44: Indication Sudhir as ORAL) 14 s: Take Medical with each Branch meal venlafaxine 2018-0 Yes 150mg Take 150 U nivers XR (EFFEXOR 2-07 mg by ity of XR) 150 mg 15:44: mouth [place] 24 hr 14 daily with Medical capsule breakfast. Branch Indication s: take 2 once daily buPROPion 2018-0 Yes 100mg Take 100 Uni vers SR 2-07 mg by ity of (WELLBUTRIN 15:44: mouth [place] SR) 150 mg 14 daily. Medical SR tablet Branch metoprolol 2018-0 Yes 25mg Take 25 mg U nivers succinate 2-07 by mouth 2 ity of XL (TOPROL 15:44: (two) [place] XL) 25 mg 14 times Medical 24 hr daily. Branch tablet clonazePAM 2018-0 Yes 1mg Take 1 mg Un anai (KLONOPIN) 2-07 by mouth 2 ity of 1 mg tablet 15:44: (two) [place] 14 times Medical daily. Branch estradiol 2018-0 Yes 1mg Take 1 mg Uni vers (ESTRACE) 2-07 by mouth ity of 0.5 mg 15:44: daily. [place] tablet 14 Medical Branch pantoprazol 2018-0 Yes 40mg Take 40 mg Univers e 2-07 by mouth ity of (PROTONIX) 15:44: daily. [place] 40 mg EC 14 Medical tablet Branch LIPASE/PROT 2018-0 Yes Take by Un anai EASE/AMYLAS 2-07 mouth. ity of E (CREON 15:44: Indication Sudhir as ORAL) 14 s: Take Medical with each Branch meal venlafaxine 2018-0 Yes 150mg Take 150 U nivers XR (EFFEXOR 2-07 mg by ity of XR) 150 mg 15:44: mouth [place] 24 hr 14 daily with Medical capsule breakfast. Branch Indication s: take 2 once daily buPROPion 2018-0 Yes 100mg Take 100 Uni vers SR 2-07 mg by ity of (WELLBUTRIN 15:44: mouth [place] SR) 150 mg 14 daily. Medical SR tablet Branch metoprolol 2018-0 Yes 25mg Take 25 mg U nivers succinate 2-07 by mouth 2 ity of XL (TOPROL 15:44: (two) [place] XL) 25 mg 14 times Medical 24 hr daily. Branch tablet clonazePAM 2018-0 Yes 1mg Take 1 mg Un anai (KLONOPIN) 2-07 by mouth 2 ity of 1 mg tablet 15:44: (two) [place] 14 times Medical daily. Branch estradiol 2018-0 Yes 1mg Take 1 mg Uni vers (ESTRACE) 2-07 by mouth ity of 0.5 mg 15:44: daily. [place] tablet 14 Medical Branch pantoprazol 2018-0 Yes 40mg Take 40 mg Univers e 2-07 by mouth ity of (PROTONIX) 15:44: daily. [place] 40 mg EC 14 Medical tablet Branch LIPASE/PROT 2018-0 Yes Take by Un anai EASE/AMYLAS 2-07 mouth. ity of E (CREON 15:44: Indication Sudhir as ORAL) 14 s: Take Medical with each Branch meal venlafaxine 2018-0 Yes 150mg Take 150 U nivers XR (EFFEXOR 2-07 mg by ity of XR) 150 mg 15:44: mouth [place] 24 hr 14 daily with Medical capsule breakfast. Branch Indication s: take 2 once daily buPROPion 2018-0 Yes 100mg Take 100 Uni vers SR 2-07 mg by ity of (WELLBUTRIN 15:44: mouth [place] SR) 150 mg 14 daily. Medical SR tablet Branch metoprolol 2018-0 Yes 25mg Take 25 mg U nivers succinate 2-07 by mouth 2 ity of XL (TOPROL 15:44: (two) [place] XL) 25 mg 14 times Medical 24 hr daily. Branch tablet clonazePAM 2018-0 Yes 1mg Take 1 mg Un anai (KLONOPIN) 2-07 by mouth 2 ity of 1 mg tablet 15:44: (two) [place] 14 times Medical daily. Branch estradiol 2018-0 Yes 1mg Take 1 mg Uni vers (ESTRACE) 2-07 by mouth ity of 0.5 mg 15:44: daily. [place] tablet 14 Medical Branch pantoprazol 2018-0 Yes 40mg Take 40 mg Univers e 2-07 by mouth ity of (PROTONIX) 15:44: daily. [place] 40 mg EC 14 Medical tablet Branch LIPASE/PROT Yes Take by Un anai EASE/AMYLAS 2-07 mouth. ity of E (CREON 15:44: Indication Sudhir as ORAL) 14 s: Take Medical with each Branch meal venlafaxine Yes 150mg Take 150 U nivers XR (EFFEXOR 2-07 mg by ity of XR) 150 mg 15:44: mouth [place] 24 hr 14 daily with Medical capsule breakfast. Branch Indication s: take 2 once daily acetaminoph Yes 1{tbl} Take 1 Tab Univers en-codeine 4-04 by mouth ity o f (TYLENOL 00:00: every 4 [place] #3) 300-30 00 (four) Medical mg tablet hours as Branch needed for Pain (scale 4-6). acetaminoph Yes 1{tbl} Take 1 Tab Univers en-codeine 4-04 by mouth ity o f (TYLENOL 00:00: every 4 [place] #3) 300-30 00 (four) Medical mg tablet hours as Branch needed for Pain (scale 4-6). acetaminoph Yes 1{tbl} Take 1 Tab Univers en-codeine 4-04 by mouth ity o f (TYLENOL 00:00: every 4 [place] #3) 300-30 00 (four) Medical mg tablet hours as Branch needed for Pain (scale 4-6). acetaminoph Yes 1{tbl} Take 1 Tab Univers en-codeine 4-04 by mouth ity o f (TYLENOL 00:00: every 4 [place] #3) 300-30 00 (four) Medical mg tablet hours as Branch needed for Pain (scale 4-6). levothyroxi Yes 50ug Take 1 Tab Univers ne 1-21 by mouth ity of (SYNTHROID) 00:00: [place]. [place] 50 mcg 00 Medical tablet Branch aspirin 81 Yes 81mg Take 1 Tab U nivers mg chewable 1-21 by mouth ity of tablet 00:00: daily. [place] 00 Medical Branch levothyroxi Yes 50ug Take 1 Tab Univers ne 1-21 by mouth ity of (SYNTHROID) 00:00: [place]. [place] 50 mcg 00 Medical tablet Branch aspirin 81 2016-0 Yes 81mg Take 1 Tab U nivers mg chewable 1-21 by mouth ity of tablet 00:00: daily. [address] levothyroxi Yes 50ug Take 1 Tab Univers ne 1-21 by mouth ity of (SYNTHROID) 00:00: [place]. [place] 50 mcg Medical tablet Branch aspirin 81 Yes 81mg Take 1 Tab U nivers mg chewable 1-21 by mouth ity of tablet 00:00: daily. [address] levothyroxi Yes 50ug Take 1 Tab Univers ne 1-21 by mouth ity of (SYNTHROID) 00:00: [place]. [place] 50 mcg [facility] tablet [place] aspirin 81 Yes 81mg Take 1 Tab U nivers mg chewable 1-21 by mouth ity of tablet 00:00: daily. [address] Venlafaxine Venlafaxine Yes Mehdi not [facility] [...] - morning [facility] Yes Mehdi [address] [facility] [...] needed [facility] ent Clinics Procedures Procedure Date / Time Performed Performing Clinician [facility] e ASSIGNMENT OF BENEFITS 2022-02-02 16:36:40 Doctor Unassigned, No [facility] PHYSICIAN ORDERS 2021-10-20 06:01:00 Doctor Unassigned, No [facility] Encounters Start End Encounter Admission Attending Care Care Encounter Source Date/Time Date/Time Type Type Clinicians Facility Department ID 2022-02-06 2022-02-12 Inpatient ZEKE MCCABE [facility] [id number] [place] 00:00:00 00:00:[address] 2022-02-02 2022-02-02 Laboratory Only, Adc Test [facility] 1.2.840. 114 [id number] Univers 11:00:00 11:15:00 Only [place] [id number] [id number] [facility] [phone] [address] 2022-02-02 2022-02-02 Outpatient R [facility] [id number] Univers 11:00:00 11:00:00 [id number] ity [facility] 2022-02-02 2022-02-02 Outpatient R JESSE [facility] [id number] [facility] 11:00:00 11:00:00 [place] garcia of [facility] 2022-02-02 2022-02-02 Orders Doctor SANDRA [id number] [id number] [facility] 00:00:00 00:00:00 Only Unassigned, BRODY [id number] ity of [place] [facility] [id number] Sudhir as [phone] [address] 2022-01-31 2022-01-31 Outpatient BAVARE, [facility] [id number] [place] 00:00:00 00:00:00 CHARUDATTA 760 Met [facility] 2022-01-31 2022-01-31 Outpatient BAVARE, [facility] [id number] [place] 00:00:00 00:00:00 CHARUDATTA 080 Met [facility] 2022-01-17 2022-01-17 Outpatient GOLDEN, [facility] [id number] [place] 00:00:00 00:00:00 BRDIGET 147 Method i 2022-01-09 2022-01-09 Outpatient GOLDEN, [facility] [id number] [place] 00:00:00 00:00:00 BRIDGET 472 Method i 2022-01-08 2022-01-08 Outpatient GC_SWHAOMC_ PRIV PRIV [id number] [facility] 03:10:00 03:10:00 Josemanuel_Kurt [id number] Medic al 2021-12-27 2021-12-27 Outpatient BAVARE, [facility] [id number] [place] 00:00:00 00:00:00 CHARUDATTA 863 Met [facility] 2021-12-27 2021-12-27 Outpatient BAVARE, [facility] [id number] [place] 00:00:00 00:00:00 TONYUDATTA 429 Met [facility] 2021-12-12 2021-12-12 Outpatient GOLDEN, [facility] [id number] [place] 00:00:00 00:00:00 BRIDGET [address] 2021-11-28 2021-11-28 Outpatient GOLDEN, [facility] [id number] [place] 00:00:00 00:00:00 BRIDGET [address] 2021-11-23 2021-11-23 Outpatient GOLDEN, [facility] [id number] [place] 00:00:00 00:00:00 BRIDGET [address] 2021-11-14 2021-11-14 Outpatient BAVARE, [facility] [id number] [place] 00:00:00 00:00:00 PENG 345 Met [facility] 2021-11-09 2021-11-09 Laboratory Only, Adc Test [facility] 1.2.840. 114 [id number] [facility] 11:00:00 11:15:00 Only [place] AARONCARTER [id number] ity of [place] [id number] [facility] [phone] Medi devon 353 Branch 2021-11-08 2021-11-08 Outpatient R [facility] [id number] [facility] 11:00:00 11:00:00 [id number] ity of [facility] 2021-10-31 2021-10-31 Outpatient GOLDEN, [facility] [id number] [place] 00:00:00 00:00:00 BRIDGET [address] 2021-10-23 2021-10-23 Outpatient BAVARE, [facility] [id number] [place] 00:00:00 00:00:00 PENG 785 Met [facility] 2021-10-20 2021-10-20 Orders Doctor SANDRA [id number] [place] [address] 00:00:00 00:00:00 Only Unassigned, BRODY [id number] ity of [facility] [id number] [facility] [phone] Medi devon 009 Branch 2021-10-19 2021-10-19 Outpatient GOLDEN, [facility] [id number] [place] 00:00:00 00:00:00 BRIDGET [address] 2021-10-17 2021-10-17 Outpatient BAVARE, [facility] [id number] [place] 00:00:00 00:00:00 PENG 605 Met [facility] 2021-10-17 2021-10-17 Outpatient [facility], [facility] [id number] [place] 00:00:00 00:00:00 PENG 798 Met [facility] 2021-10-17 2021-10-17 Outpatient GOLDEN, [facility] [id number] [place] 00:00:00 00:00:00 BRIDGET [address] 2021-10-03 2021-10-03 Outpatient GOLDEN, [facility] [id number] [place] 00:00:00 00:00:00 BRIDGTE [address] 2021-09-19 2021-09-19 Outpatient GOLDEN, [facility] [id number] [place] 00:00:00 00:00:00 BRIDGET [address] 2021-09-05 2021-09-05 Outpatient GOLDEN, [facility] [id number] [place] 00:00:00 00:00:00 BRIDGET [address] 2021-08-30 2021-08-30 Outpatient BAVARE, [facility] [id number] [place] 00:00:00 00:00:00 ALBATTA [address] 2021-08-14 2021-08-14 Outpatient BAVARE, [facility] [id number] [place] 00:00:00 00:00:00 CHARUDATTA [address] 2021-07-06 2021-07-06 Outpatient GOLDEN, [facility] [id number] [place] 00:00:00 00:00:00 BRIDGET [address] 2021-07-05 2021-07-05 Outpatient BAVARE, [facility] [id number] [place] 00:00:00 00:00:00 CHARUDATTA [address] 2021-05-29 2021-05-29 Outpatient BAVARE, [facility] [id number] [place] 00:00:00 00:00:00 CHARUDATTA [address] 2021-05-17 2021-05-17 Outpatient GOLDEN, [facility] [id number] [place] 00:00:00 00:00:00 BRIDGET [address] 2021-05-08 2021-05-08 Outpatient BAVARE, [facility] [id number] [place] 00:00:00 00:00:00 CHARUDATTA [address] 2021-05-03 2021-05-03 Outpatient BAVARE, [facility] [id number] [place] 00:00:00 00:00:00 CHARUDATTA [address] 2021-05-03 2021-05-03 Outpatient BAVARE, [facility] [id number] [place] 00:00:00 00:00:00 CHARUDATTA [address] 2021-05-01 2021-05-01 Outpatient BAVARE, [facility] [id number] [place] 00:00:00 00:00:00 CHARSILVERTTA 366 Met [facility] 2021-02-27 2021-02-27 Outpatient ROBBEN, [facility] [id number] [place] 00:00:00 00:00:00 KIRT [address] 2021-01-26 2021-01-26 Outpatient [facility] [id number] [place] 00:00:00 00:00:00 548 Method i 2020-10-21 2020-10-21 Outpatient NAVARRETE, [facility] [id number] [place] 00:00:00 00:00:00 LUCERO 334 Method i 2020-10-20 2020-10-20 Outpatient Raju_P MMG MMG [id number] [place] 05:39:00 05:39:00 1203 [facility] 2020-09-21 2020-09-27 Inpatient SHEPHERD, [facility] [id number] [place] 00:00:00 00:00:00 PARAMJIT 891 Method i 2020-07-27 2020-07-27 Outpatient TELUGU, [facility] [id number] [place] 00:00:00 00:00:00 ISABELL 989 Meth kamille 2020-07-27 2020-07-27 Outpatient MEHTA, [facility] [id number] [place] 00:00:00 00:00:00 JASON 959 Method i 2020-07-08 2020-07-08 Outpatient TELUGU, [facility] [id number] [place] 00:00:00 00:00:00 ISABELL 830 Meth [place] 2020-07-08 2020-07-08 Outpatient TELUGU, [facility] [id number] [place] 00:00:00 00:00:00 ISABELL 605 Meth [place] 2020-07-08 2020-07-08 Outpatient TELUGU, [facility] [id number] [place] 00:00:00 00:00:00 ISABELL 219 Meth [place] 2020-07-08 2020-07-08 Outpatient TELUGU, [facility] [id number] [place] 00:00:00 00:00:[address] ISAB[address]LL [address] 2020-07-08 2020-07-08 Outpatient TELUGU, [facility] [id number] [place] 00:00:00 00:00:00 ISABELL [address] 2020-07-08 2020-07-08 Outpatient TELUGU, [facility] [id number] [place] 00:00:00 00:00:00 ISABELL [address] 2020-04-29 2020-04-29 Outpatient MEHTA, [facility] [id number] [place] 00:00:00 00:00:00 JASON [address] 2020-04-07 2020-04-07 Outpatient [facility] [id number] [place] 00:00:00 00:00:[address] 2020-04-05 2020-04-05 Outpatient GRZEGORZ, [facility] [id number] [place] 00:00:00 00:00:00 AHMED [address] 2020-04-05 2020-04-05 Outpatient MEHTA, [facility] [id number] [place] 00:00:00 00:00:00 JASON [address] 2019-12-30 2019-12-30 [facility] [id number] 14:55:00 14:55:00 [facility] ent Clinics 2019-10-28 2019-11-05 Inpatient AVALOS, [facility] [id number] [place] 00:00:00 00:00:00 RA [address] 2019-01-07 2019-01-07 [facility] [id number] 08:00:00 08:00:00 t [facility] ent [facility] Results Test Description Test Time Test Comments Results Result Comments Source SARS-CoV-2 (COVID-19) RNA [Presence] in Respiratory sp ecimen by 2020-09-22 06:47:41 MARIELOS with probe detection Test Item Value Reference Range Interpretation Comme nts SARS-CoV-2 (COVID-19) RNA [Presence] in Respiratory Not detected No t-Detected specimen by MARIELOS with probe detection (test code = 23994-1)
[2022-02-16 10:53] LABS: Urine Blood Trace-intact (Negative); Urine Glucose Negative (Negative); Urine Protein Negative (Negative); Urine Specific Gravity 1.015 (1.005-1.030); Urine pH 6.5 (5.0-7.0)
[2022-02-16 11:09] LABS: MPV 8.2 fL (7.6-11.3)
[2022-02-16 11:13] LABS: Urine Bacteria <20 /HPF (<20); Urine RBC <5 /HPF (NONE SEEN)
--- NOTE | 2022-02-16 11:13 | RAD REPORT ---
EXAM DESCRIPTION: Sara Single View4 10:32 am CLINICAL HISTORY: Chest pain COMPARISON: November 2021 FINDINGS: The lungs appear clear of acute infiltrate. The heart is normal size. Pacemaker leads in place. Central venous catheter has its limbs near the caval atrial junction IMPRESSION: No acute abnormalities displayed
[2022-02-16 11:24] LABS: Absolute Lymphocytes (CBC) 1.1 K/uL (0.7-4.9); Hematocrit 25.7 % (36.0-45.0); Lymphocytes % 20.7 % (15.3-44.8); RBC Red Blood Cell Count 3.23 M/uL (3.86-4.86)
[2022-02-16 11:31] LABS: Potassium 3.7 mmol/L (3.5-5.1); Troponin High Sensitivity 13.7 pg/mL (<58.9)
--- NOTE | 2022-02-16 12:01 | RAD REPORT ---
EXAM DESCRIPTION: CT - Abdomen Pelvis Wo Contrast - 02/16/2022 11:45 am CLINICAL HISTORY: Abdominal pain vomiting/left-sided abdominal pain COMPARISON: 2019 TECHNIQUE: Computed axial tomography of the abdomen and pelvis was obtained. IV and oral contrast we re not requested. All CT scans are performed using dose optimization technique as appropriate and may include automated exposure control or mA/KV adjustment according to patient size. FINDINGS: The evaluation of solid organs, vessels and bowel is limited secondary to the lack of con trast administration. Postsurgical changes of a Whipple procedure. Small amount of pancreatic tissue suspected in the regio n of the pancreatic head. Cholecystectomy. Chronic pneumobilia. Fatty infiltration of liver. Spleen, adrenals and kidneys appear grossly normal. Rectum is mildly distended with stool. Moderate amount stool is present throughout colon. Postsurgical changes involve the lumbar spine. No omental/mesenteric nodules seen. No bowel obstruction IMPRESSION: Moderate amount stool within the colon
[2022-02-16 12:21] LABS: SARS-COV-2 RT PCR NEGATIVE (NEGATIVE)
--- NOTE | 2022-02-16 13:00 | ER ---
Nurse's Notes [facility] Name: Jennifer Haddad Age: 61 yrs Sex: Female : 1960 Arrival Date: 02/16/2022 Time: 09:34 Bed 20 Private MD: Ryan Thomas V Diagnosis: Other malaise and fatigue;End stage renal disease;Constipation, unspecified Presentation: 02/16 10:09 Chief complaint: Patient states: pt presented to ED reporting chest pain, shortness of velásquez breath, weakness, dizziness, N/V/D. newly to dialysis MWF. Coronavirus screen: Vaccine status: Patient reports receiving the 2nd dose of the covid vaccine. Ebola Screen: Patient denies travel to an Ebola-affected area in the 21 days before illness onset. Initial Sepsis Screen: Does the patient meet any 2 criteria? No. Patient's initial sepsis screen is negative. Does the patient have a suspected source of infection? No. Patient's initial sepsis screen is negative. Risk Assessment: Do you want to hurt yourself or someone else? Patient reports no desire to harm self or others. Onset of symptoms was February 15, 2022. 10:09 Method Of Arrival: Ambulatory velásquez 10:09 Acuity: ILIR 3 velásquez Triage Assessment: 10:15 General: Appears in no apparent distress. Behavior is calm, cooperative. Pain: velásquez Complains of pain in chest. Cardiovascular: Reports chest pain, fatigue, lightheadedness, nausea, shortness of breath, vomiting. Historical: - Allergies: 10:15 Compazine; velásquez 10:15 Iron Infusions; velásquez 10:15 metronidazole; velásquez 10:15 Pamabrom; velásquez 10:15 prochlorperazine Edisylate; velásquez 10:15 Prochlorperazine Maleate; velásquez 10:15 pyrilamine maleate; velásquez 10:15 sodium ferric gluconate complex; velásquez 10:15 sucrose; velásquez - Home Meds: 10:15 bupropion HCl 100 mg Oral TbER 1 tab 2 times per day [Active]; estradiol 1 mg Oral tab velásquez 1 tab once daily [Active]; furosemide 40 mg Oral tab 1 tab once daily [Active]; levothyroxine 75 mcg tab 1 tab once daily [Active]; lorazepam 1 mg oral tab [Active]; metoprolol tartrate 25 mg Oral tab 1 tab once daily [Active]; mirtazapine 7.5 mg Oral tab 1 tabs once daily [Active]; paricalcitol 1 mcg Oral cap 1 cap 3 times per wk [Active]; venlafaxine 150 mg Oral cp24 1 cap once daily [Active]; 10:37 Zofran 8 mg Oral tab 1 tab every 8 hours [Active]; promethazine 12.5 mg Oral tab 1 tab velásquez every 6 hours [Active]; Ralston 10-325 mg Oral tab 1 tab every 4 hours [Active]; - PMHx: 10:15 Anxiety; CHF; Depression; GERD; Osteoporosis; Hypothyroidism; Pacemaker; pancreatic velásquez cancer; Tachycardia; - Immunization history:: Adult Immunizations up to date. - Social history:: Smoking status: Patient denies any tobacco usage or history of. - Family history:: not pertinent. - Hospitalizations: : Patient was recently seen at. Screenin:17 Abuse screen: Denies threats or abuse. Denies injuries from another. Nutritional velásquez screening: No deficits noted. Tuberculosis screening: No symptoms or risk factors identified. Fall Risk IV access (20 points). Vital Signs: 10:09 BP 114 / 51; Pulse 66; Resp 16; Temp 98.8; Pulse Ox 100% on R/A; Weight 50.35 kg; velásquez Height 4 ft. 11 in. (149.86 cm); 11:25 BP 98 / 53; Pulse 74; Resp 16; Pulse Ox 99% on R/A; velásquez 10:09 Body Mass Index 22.42 (50.35 kg, 149.86 cm) velásquez ED Course: 09:34 Patient arrived in ED. am2 09:35 Ryan Thomas MD is Private Physician. am2 09:52 Eloisa Martin, RN is Primary Nurse. velásquez 10:01 Gordo Baumann MD is Attending Physician. rn 10:11 Triage completed. velásquez 10:15 Arm band placed on. velásquez 10:17 Patient has correct armband on for positive identification. monitoring and evaluation advisor on. Pulse velásquez ox on. NIBP on. 10:17 No provider procedures requiring assistance completed. Patient maintains SpO2 velásquez saturation greater than 95% on room air. 10:34 XRAY Chest (1 view) In Process Unspecified. EDMS 10:59 Urine collected: clean catch specimen, clear. wm 11:02 Blood Culture Adult (2) Sent. velásquez 11:02 Procalcitonin Sent. velásquez 11:02 COVID-19/FLU A+B (Document "Date of Onset" if Symptomatic) Sent. velásquez 11:02 Urine Microscopic Only Sent. velásquez 11:02 Urine Culture Sent. velásquez 11:03 Basic Metabolic Panel Sent. velásquez 11:03 CBC with Diff Sent. velásquez 11:03 NT PRO-BNP Sent. velásquez 11:03 Troponin HS Sent. velásqeuz 11:47 CT Abd/Pelvis - Without Contrast In Process Unspecified. EDMS 13:37 IV discontinued, intact, Pressure dressing applied. velásquez Administered Medications: No medications were administered Outcome: 12:59 Discharge ordered by . rn 13:37 Discharged to home velásquez 13:37 Condition: good 13:37 Discharge instructions given to patient. 13:37 Patient left the ED. velásquez Signatures: Dispatcher [employer] EDMS Gordo Baumann MD MD rn Moreno, Amanda am2 Marsh, Wendy Arianne-StagerEloisa RN RN velásquez
--- NOTE | 2022-02-16 13:00 | EDPHYS ---
Physician Documentation [facility] Name: Jennifer Haddad Age: 61 yrs Sex: Female : 1960 Arrival Date: 02/16/2022 Time: 09:34 Bed 20 Private MD: Ryan Thomas V ED Physician Gordo Baumann HPI: 02/16 11:30 This 61 yrs old Female presents to ER via Ambulatory with complaints of fatigue, sob, rn muscle aches, weakness. 11:31 Pt reports 2 days of malaise, generalized weakness, fatigue, myalgias, sob, rn nausea/vomiting. Reports last dialysis Saturday, is new to dialysis for 2 weeks. Denies focal pain. no fever. . Onset: The symptoms/episode began/occurred 2 day(s) ago. Severity of symptoms: At their worst the symptoms were moderate in the emergency department the symptoms are unchanged. The patient has not experienced similar symptoms in the past. The patient has been recently seen by a physician:. Historical: - Allergies: 10:15 Compazine; velásquez 10:15 Iron Infusions; velásquez 10:15 metronidazole; velásquez 10:15 Pamabrom; velásquez 10:15 prochlorperazine Edisylate; velásquez 10:15 Prochlorperazine Maleate; velásquez 10:15 pyrilamine maleate; velásquez 10:15 sodium ferric gluconate complex; velásquez 10:15 sucrose; velásquez - Home Meds: 10:15 bupropion HCl 100 mg Oral TbER 1 tab 2 times per day [Active]; estradiol 1 mg Oral tab velásquez 1 tab once daily [Active]; furosemide 40 mg Oral tab 1 tab once daily [Active]; levothyroxine 75 mcg tab 1 tab once daily [Active]; lorazepam 1 mg oral tab [Active]; metoprolol tartrate 25 mg Oral tab 1 tab once daily [Active]; mirtazapine 7.5 mg Oral tab 1 tabs once daily [Active]; paricalcitol 1 mcg Oral cap 1 cap 3 times per wk [Active]; venlafaxine 150 mg Oral cp24 1 cap once daily [Active]; 10:37 Zofran 8 mg Oral tab 1 tab every 8 hours [Active]; promethazine 12.5 mg Oral tab 1 tab velásquez every 6 hours [Active]; Ephraim 10-325 mg Oral tab 1 tab every 4 hours [Active]; - PMHx: 10:15 Anxiety; CHF; Depression; GERD; Osteoporosis; Hypothyroidism; Pacemaker; pancreatic velásquez cancer; Tachycardia; - Immunization history:: Adult Immunizations up to date. - Social history:: Smoking status: Patient denies any tobacco usage or history of. - Family history:: not pertinent. - Hospitalizations: : Patient was recently seen at. ROS: 11:31 Constitutional: Negative for fever, chills, and weight loss, Eyes: Negative for injury, rn pain, redness, and discharge, Neck: Negative for injury, pain, and swelling, Cardiovascular: Negative for chest pain, palpitations, and edema, Respiratory: Negative for cough, wheezing, and pleuritic chest pain, Abdomen/GI: + LLQ abd pain with nausea/vomiting Back: Negative for injury and pain, MS/Extremity: Negative for injury and deformity, Skin: Negative for injury, rash, and discoloration, Neuro: Negative for headache, weakness, numbness, tingling, and seizure. Exam: 11:33 Constitutional: This is a well developed, well nourished patient who is awake, alert, rn and in no acute distress. Pale appearance. Head/Face: Normocephalic, atraumatic. Eyes: Periorbital areas with no swelling, redness, or edema. Cardiovascular: Regular rate and rhythm. No pulse deficits. Respiratory: No increased work of breathing, no retractions or nasal flaring. Abdomen/GI: soft, + mild LLQ tenderness. No rebound. No masses Skin: Warm, dry MS/ Extremity: Pulses equal, no cyanosis. Neuro: Awake and alert, GCS 15, oriented to person, place, time, and situation. Cranial nerves II-XII grossly intact. Motor strength 4/5 in all extremities. Sensory grossly intact. Vital Signs: 10:09 BP 114 / 51; Pulse 66; Resp 16; Temp 98.8; Pulse Ox 100% on R/A; Weight 50.35 kg; velásquez Height 4 ft. 11 in. (149.86 cm); 11:25 BP 98 / 53; Pulse 74; Resp 16; Pulse Ox 99% on R/A; velásquez 10:09 Body Mass Index 22.42 (50.35 kg, 149.86 cm) MDM: 10:01 Patient medically screened. rn 12:54 Differential Diagnosis ESSRD, anemia of chronic disease, electrolyte problems, flu, rn covid, adverse effect of initiating dialysis.. Data reviewed: vital signs, nurses notes, lab test result(s), radiologic studies, CT scan, plain films, and as a result, I will discharge patient. Counseling: I had a detailed discussion with the patient and/or guardian regarding: the historical points, exam findings, and any diagnostic results supporting the discharge/admit diagnosis, lab results, radiology results, the need for outpatient follow up, to return to the emergency department if symptoms worsen or persist or if there are any questions or concerns that arise at home. Response to treatment: the patient's symptoms have mildly improved after treatment, and as a result, I will discharge patient. Special discussion: I discussed with the patient/guardian in detail that at this point there is no indication for admission to the hospital. It is understood, however, that if the symptoms persist or worsen the patient needs to return immediately for re-evaluation. Based on the history and exam findings, there is no indication for further emergent testing or inpatient evaluation. I discussed with the patient/guardian the need to see the primary care provider for further evaluation of the symptoms. nephrology. ED course: No acute findings on CT or bloodwork. Likely a combination of new initiation of dialysis, anemia of chronic disease. Will f/u with nephrology. Will call dialysis upon discharge to see if can get into dialysis today or tomorrow. . 02/16 10:09 Order name: Basic Metabolic Panel; Complete Time: 11:33 rn 02/16 10:09 Order name: CBC with Diff; Complete Time: 11: rn 02/16 10:09 Order name: NT PRO-BNP; Complete Time: 11:33 rn 02/16 10:09 Order name: Troponin HS; Complete Time: 11:33 rn 02/16 10:09 Order name: COVID-19/FLU A+B (Document "Date of Onset" if Symptomatic); Complete Time: rn 12:25 02/16 10:09 Order name: Procalcitonin; Complete Time: 12:30 rn 02/16 10:09 Order name: XRAY Chest (1 view); Complete Time: 11:16 rn 02/16 10:09 Order name: EKG; Complete Time: 10:10 rn 02/16 10:09 Order name: Cardiac monitoring; Complete Time: 11:02 rn 02/16 10:09 Order name: Blood Culture Adult (2) rn 02/16 10:09 Order name: Urine Culture rn 02/16 10:09 Order name: Urine Microscopic Only; Complete Time: 11:16 rn 02/16 10:53 Order name: Urine Dipstick-Ancillary; Complete Time: 11:16 EDMS 02/16 11:33 Order name: CT Abd/Pelvis - Without Contrast; Complete Time: 12:18 rn 02/16 10:09 Order name: EKG - Nurse/Tech; Complete Time: 11:02 rn 02/16 10:09 Order name: IV Saline Lock; Complete Time: 11:02 rn 02/16 10:09 Order name: Labs collected and sent; Complete Time: 11:02 rn 02/16 10:09 Order name: O2 Per Protocol; Complete Time: 11:02 rn 02/16 10:09 Order name: O2 Sat Monitoring; Complete Time: 11:02 rn 02/16 10:09 Order name: Urine Dipstick-Ancillary (obtain specimen); Complete Time: 11:02 rn Administered Medications: No medications were administered Disposition Summary: 02/16/22 12:59 Discharge Ordered Location: Home rn Problem: new rn Symptoms: have improved rn Condition: Stable rn Diagnosis - Other malaise and fatigue rn - End stage renal disease rn - Constipation, unspecified rn Followup: rn - With: Private Physician - When: As needed - Reason: Recheck today's complaints, Re-evaluation by your physician Discharge Instructions: - Discharge Summary Sheet rn - Constipation, Adult rn - rn pediatric - End-Stage Kidney Disease rn Forms: - Medication Reconciliation Form rn - Thank You Letter rn - Antibiotic harness brusher - Prescription Opioid Use rn Signatures: Dispatcher [employer] Gordo Christensen MD MD rn Eloisa Martin RN RN velásquez
[2022-02-16 14:14] VITALS: TEMP 98.8
[2022-02-16 14:15] VITALS: BP 98/53; O2SAT 99
--- NOTE | 2022-02-19 11:21 | EKG ---
Test Date: 2022-02-16 Test Time: 09:57:16 Relay Adjuster: JULIAN MEASUREMENT RESULTS: Intervals: Rate: 67 GA: 152 QRSD: 92 QT: 380 QTc: 401 [place]: P: 75 GA: 152 QRS: 13 T: 27 INTERPRETIVE STATEMENTS: Normal sinus rhythm Incomplete right bundle branch block Septal infarct, age undetermined Abnormal ECG Compared to ECG 02/03/2021 18:46:59 Incomplete right bundle-branch block now present Myocardial infarct finding now present Electronically Signed On 02-19-22 11:13:38 CDT by Wes Ragland
== END 2022-02-16 13:37 | disposition home or self-care (01) ==
LOC: ER 09:33
DX: R53.83 Other fatigue (principal); K59.00 Constipation, unspecified; N18.6 End stage renal disease; Z99.2 Dependence on renal dialysis; Z95.0 Presence of cardiac pacemaker; E03.9 Hypothyroidism, unspecified; F41.8 Other specified anxiety disorders; I50.9 Heart failure, unspecified; Z20.822 Contact with and (suspected) exposure to COVID-19; Z88.1 Allergy status to other antibiotic agents; Z88.8 Allergy status to other drugs, medicaments and biological substances
CPT/HCPCS: 93005; 87040 ×2; 87088; 85025; 87086; 80048; 36415; 84484; 84145; 83880; 0240U; 74176; 71045; 99284; 81003; 81015

== ENCOUNTER 2024-08-27 11:28 | Emergency (ER) | payer OTHER ==
[2024-08-27] MEDS ORDERED: dexAMETHasone 10 MG/ML VIAL ONE (12:28)
[2024-08-27] MEDS ORDERED: MORPHINE 4 MG/ML SYR ONE (12:28)
--- NOTE | 2024-08-27 13:07 | ER ---
Nurse's Notes [facility] Name: Jennifer Haddad Age: 63 yrs Sex: Female : 1960 Arrival Date: 08/27/2024 Time: 11:28 Bed 10 Private MD: Diagnosis: Radiculopathy, lumbar region Presentation: 08/27 11:47 Chief complaint: Patient states: left low back pain radiating down left leg, reports aa5 being seen here recently for same complaints. Pt states "I have fallen 3 times this week". 11:47 Acuity: ILIR 3 aa5 11:47 Method Of Arrival: Wheelchair aa5 11:47 Coronavirus screen: At this time, the client does not indicate any symptoms associated aa5 with coronavirus-19. Ebola Screen: Patient denies travel to an Ebola-affected area in the 21 days before illness onset. Initial Sepsis Screen: Does the patient meet any 2 criteria? No. Patient's initial sepsis screen is negative. Does the patient have a suspected source of infection? No. Patient's initial sepsis screen is negative. Risk Assessment: Do you want to hurt yourself or someone else? Patient reports no desire to harm self or others. Onset of symptoms was August 2024. Historical: - Allergies: 11:47 Compazine; aa5 11:47 Ibuprofen; aa5 11:47 Iron Infusions; aa5 11:47 metronidazole; aa5 11:47 Pamabrom; aa5 11:47 pyrilamine maleate; aa5 11:47 Reglan; aa5 11:47 sodium ferric gluconate complex; aa5 11:47 sucrose; aa5 - PMHx: 11:47 Anxiety; CHF; GERD; Depression; Hypothyroidism; Osteoporosis; Pacemaker; pancreatic aa5 cancer; Tachycardia; Chronic Back pain (Unknown); Kidney Failure (Unknown); - PSHx: 11:47 Appendectomy; back surgery; breast implant; Cholecystectomy; Tonsillectomy; Whipple aa5 procedure; Pacemaker (Unknown); - Immunization history:: Adult Immunizations up to date. - Infectious Disease History:: Denies. - Family history:: not pertinent. - Hospitalizations: : No recent hospitalization is reported. - Social history:: Smoking status: Patient/guardian denies using tobacco, but has a distant history of tobacco abuse. Screenin:38 [facility] Fall Risk Assessment (Adult) History of falling in the last 3 months, iw including since admission Confusion or Disorientation No (0 pts) Intoxicated or Sedated No (0 pts) Impaired Gait Yes (1 pt) Mobility Assist Device Used Yes (1 pt) Altered Elimination No (0 pt) Score/Fall Risk Level 3 or more points = High Risk Oriented to surroundings. Abuse screen: Denies threats or abuse. Nutritional screening: No deficits noted. Tuberculosis screening: No symptoms or risk factors identified. Assessment: 12:37 General: Appears in no apparent distress. Behavior is calm, cooperative. Pain: iw Complains of pain in back Pain radiates to left leg. Neuro: Level of Consciousness is awake, alert, obeys commands, Oriented to person, place, time, situation, Moves all extremities. Cardiovascular: Patient's skin is warm and dry. Respiratory: Respiratory effort is even, unlabored, Respiratory pattern is regular. Derm: Skin is intact, is fragile. Vital Signs: 11:47 BP 115 / 67; Pulse 77; Resp 18 S; Temp 97.5(TE); Pulse Ox 100% on R/A; aa5 13:07 BP 121 / 74; Pulse 76; Resp 15; Pulse Ox 100% ; ko1 ED Course: 11:32 Patient arrived in ED. im 11:32 Gordo Baumann MD is Attending Physician. rn 11:46 Arm band placed on. aa5 11:47 Triage completed. aa5 12:36 Kailyn Hernandez, SALVADOR is Primary Nurse. iw 13:04 Patient has correct armband on for positive identification. Allergy band placed. Bed in ko1 low position. Call light in reach. Side rails up X 1. Provided Education on: meds. Pulse ox on. NIBP on. Door closed. Noise minimized. Lights dimmed. 13:04 No provider procedures requiring assistance completed. Patient did not have IV access ko1 during this emergency room visit. Administered Medications: 12:22 Not Given (Other Intervention Used): Decadron - [id number] mg IVP once iw 12:22 Not Given (Other Intervention Used): morphineor iv 4 mg IVP once over 4 mins iw 12:37 Drug: morphine IM 4 mg IM once Route: IM; Site: right deltoid; iw 13:07 Follow up: Response: No adverse reaction; Pain is decreased ko1 12:37 Drug: Dexamethasone IM 10 mg IM once Route: IM; Site: right gluteus; iw 13:07 Follow up: Response: No adverse reaction; Pain is decreased ko1 Medication: 12:38 VIS not applicable for this client. Outcome: 13:07 Discharge ordered by . salvador 13:07 Discharged to home via wheelchair, with family, ko1 13:07 Condition: stable 13:07 Discharge instructions given to patient, Instructed on discharge instructions, follow up and referral plans. Demonstrated understanding of instructions, follow-up care, 13:13 Patient left the ED. ko1 Signatures: Kailyn Hernandez RN RN iw Gordo Baumann MD MD rn Calderon, Audri, RN RN aa5 Sarah Plaza RN RN ko1 Shameka Collazo
--- NOTE | 2024-08-27 13:07 | EDPHYS ---
Physician Documentation [facility] Name: Jennifer Haddad Age: 63 yrs Sex: Female : 1960 Arrival Date: 08/27/2024 Time: 11:28 Bed 10 Private MD: ED Physician Gordo Baumann HPI: 08/27 11:56 This 63 yrs old Female presents to ER via Wheelchair with complaints of Back Pain. rn 11:56 The patient presents with pain that is chronic. The symptoms are located in the low rn back. Onset: The symptoms/episode began/occurred at an unknown time. The pain radiates to the right leg and left leg. Modifying factors: The patient symptoms are alleviated by nothing, the patient symptoms are aggravated by any movement. Severity of symptoms: At their worst the symptoms were moderate, in the emergency department the symptoms are unchanged. The patient has not experienced similar symptoms in the past. The patient has been recently seen at the [facility] Emergency Department. Patient with chronic back pain status post surgery in the past. Seen here a couple weeks ago and CT showed lumbar stenosis and lumbar radiculopathy affecting the left leg. Patient reports has back specialist appointment but not till September. Came in today for persistent pain. No weakness of lower extremities. No bowel or bladder incontinence or retention. No new symptoms. Came in today hoping to see a back specialist sooner.. Historical: - Allergies: 11:47 Compazine; aa5 11:47 Ibuprofen; aa5 11:47 Iron Infusions; aa5 11:47 metronidazole; aa5 11:47 Pamabrom; aa5 11:47 pyrilamine maleate; aa5 11:47 Reglan; aa5 11:47 sodium ferric gluconate complex; aa5 11:47 sucrose; aa5 - PMHx: 11:47 Anxiety; CHF; GERD; Depression; Hypothyroidism; Osteoporosis; Pacemaker; pancreatic aa5 cancer; Tachycardia; Chronic Back pain (Unknown); Kidney Failure (Unknown); - PSHx: 11:47 Appendectomy; back surgery; breast implant; Cholecystectomy; Tonsillectomy; Whipple aa5 procedure; Pacemaker (Unknown); - Immunization history:: Adult Immunizations up to date. - Infectious Disease History:: Denies. - Family history:: not pertinent. - Hospitalizations: : No recent hospitalization is reported. - Social history:: Smoking status: Patient/guardian denies using tobacco, but has a distant history of tobacco abuse. ROS: 11:56 Constitutional: Negative for fever, chills, and weight loss, Abdomen/GI: Negative for rn abdominal pain, nausea, vomiting, diarrhea, and constipation, Back: Positive for chronic back pain : Negative for injury, bleeding, discharge, and swelling, MS/Extremity: Negative for injury and deformity, Neuro: Negative for weakness or bowel or bladder incontinence/retention Exam: 11:56 Constitutional: This is a well developed, well nourished patient who is awake, alert, rn and in no acute distress. MS/ Extremity: Pulses equal, no cyanosis. Neurovascular intact. Equal strength. 2+ reflexes bilaterally in lower extremities. Sensation intact. Vital Signs: 11:47 BP 115 / 67; Pulse 77; Resp 18 S; Temp 97.5(TE); Pulse Ox 100% on R/A; aa5 13:07 BP 121 / 74; Pulse 76; Resp 15; Pulse Ox 100% ; ko1 MDM: 11:32 Patient medically screened. rn 13:05 Differential diagnosis: chronic back pain, Fatigue Osteoarthritis Vertebral disc rn degenerative disease. Data reviewed: vital signs, nurses notes, old medical records, and as a result, I will discharge patient. Counseling: I had a detailed discussion with the patient and/or guardian regarding the historical points, exam findings, and any diagnostic results supporting the discharge/admit diagnosis, the need for outpatient follow up, to return to the emergency department if symptoms worsen or persist or if there are any questions or concerns that arise at home. Special discussion: I discussed with the patient/guardian in detail that at this point there is no indication for admission to the hospital. It is understood, however, that if the symptoms persist or worsen the patient needs to return immediately for re-evaluation. Based on the history and exam findings, there is no indication for further emergent testing or inpatient evaluation. I discussed with the patient/guardian the need to see the back specialist for further evaluation of the symptoms. Administered Medications: 12:22 Not Given (Other Intervention Used): Decadron - [id number] mg IVP once iw 12:22 Not Given (Other Intervention Used): morphineor iv 4 mg IVP once over 4 mins iw 12:37 Drug: morphine IM 4 mg IM once Route: IM; Site: right deltoid; iw 13:07 Follow up: Response: No adverse reaction; Pain is decreased ko1 12:37 Drug: Dexamethasone IM 10 mg IM once Route: IM; Site: right gluteus; iw 13:07 Follow up: Response: No adverse reaction; Pain is decreased ko1 Disposition Summary: 08/27/24 13:07 Discharge Ordered Notes: Location: Home rn Problem: new rn Symptoms: have improved rn Condition: Stable rn Diagnosis - Radiculopathy, lumbar region rn Followup: rn - With: Private Physician - When: As needed - Reason: Recheck today's complaints, Re-evaluation by your physician Discharge Instructions: - Discharge Summary Sheet rn - Lumbosacral Radiculopathy rn - Neuropathic Pain rn - Pinched Nerve rn Forms: - Medication Reconciliation Form rn - Antibiotic cv rn - Prescription Opioid Use rn - Patient Portal Instructions rn - Leadership Thank You Letter rn Signatures: Kailyn Hernandez RN RN iw Gordo Baumann MD MD rn Calderon, Audri, RN RN aa5 Sarah Plaza RN RN ko1 Corrections: (The following items were deleted from the chart) 12:22 11:56 IV Saline Lock ordered. rn iw
[2024-08-27 13:45] VITALS: TEMP 97.5; O2SAT 100
[2024-08-27 13:47] VITALS: BP 121/74
== END 2024-08-27 13:13 | disposition home or self-care (01) ==
LOC: ER 11:28
DX: M54.16 Radiculopathy, lumbar region (principal); Z95.0 Presence of cardiac pacemaker; Z98.82 Breast implant status
CPT/HCPCS: 96372; 99284; J1100

== ENCOUNTER 2024-09-16 09:21 | Emergency (ER) | payer OTHER ==
[2024-09-16] MEDS ORDERED: METHYLPREDNISOLONE 125 MG INJ ONE (10:02)
--- NOTE | 2024-09-16 10:30 | RAD REPORT ---
EXAMINATION: CT LUMBAR SPINE WITHOUT CONTRAST CLINICAL INDICATION: Radiculopathy and numbness TECHNIQUE: Axial CT images were obtained through the lumbar spine in soft tissue and bone windows wit hout intravenous contrast. Coronal and Sagittal reformatted images were created from the data set. One or more of the following dose reduction techniques were used: Automated exposure control, adjustm ent of the mA and/ or kV according to patient size, and/or iterative reconstruction. Unless otherwise specified, incidental findings do not require dedicated imaging follow-up. COMPARISON: July 2024 FINDINGS: No fracture seen. No dislocation Post surgical changes L5 and S1. Right lateral disc herniation L4-5 narrows the right neural foramina. Facet hypertrophy and osteophytes L5-S1 results in marked left and moderate right foraminal stenosis. IMPRESSION: A lumbar fracture not seen Postsurgical changes L5 and S1 Right lateral disc herniation L4-5 narrows the right neural foramina Spondylosis L5-S1 results in marked left and moderate right foraminal stenosis
[2024-09-16] MEDS ORDERED: FENTANYL CITR 100 MCG/2 ML ONE (10:52)
[2024-09-16 10:53] LABS: Absolute Basophils 0.1 K/uL (0-0.5); Absolute Eosinophils 0.1 K/uL (0-0.5); Absolute Monocytes 0.5 K/uL (0.1-1.3); Absolute Neutrophil 4.8 K/uL (1.8-8.0); Basophils % 1.1 % (0-1.3); Eosinophils % 1.7 % (0-4.4); Hematocrit 38.1 % (36.0-45.0); Hemoglobin 12.2 g/dL (12.0-15.0); Lymphocytes % 26.7 % (15.3-44.8); MCH 31.2 pg (27.0-35.0); MCHC 31.9 g/dL (32.0-36.0); MCV 97.6 fL (80-100); MPV 7.5 fL (7.6-11.3); Monocytes % 6.1 % (3.3-12.3); Neutrophils % 64.4 % (41.7-73.7); Platelets 153 thou/uL (152-406); RBC Red Blood Cell Count 3.91 M/uL (3.86-4.86)
[2024-09-16 11:07] LABS: Anion Gap 5.9 mEq/L (5.0-15.0); Potassium 3.9 mEq/L (3.5-5.1)
--- NOTE | 2024-09-16 13:56 | ER ---
Nurse's Notes [facility] Name: Jennifer Haddad Age: 64 yrs Sex: Female : 1960 Arrival Date: 09/16/2024 Time: 09:21 Bed 16 Private MD: Diagnosis: Low back pain;Other intervertebral disc displacement, lumbar region-Herniated disc Presentation: 09/16 09:27 Chief complaint: Patient states: L leg pain and numbness continues since last visit ll1 here. States CT showed bulging disc. Coronavirus screen: Client denies travel out of the [place] in the last 14 days. At this time, the client does not indicate any symptoms associated with coronavirus-19. Ebola Screen: Patient denies travel to an Ebola-affected area in the 21 days before illness onset. Initial Sepsis Screen: Does the patient meet any 2 criteria? No. Patient's initial sepsis screen is negative. Does the patient have a suspected source of infection? No. Patient's initial sepsis screen is negative. Risk Assessment: Do you want to hurt yourself or someone else? Patient reports no desire to harm self or others. Onset of symptoms was August 14, 2024. 09:27 Method Of Arrival: Wheelchair ll1 09:27 Acuity: ILIR 4 ll1 Triage Assessment: 09:28 General: Appears uncomfortable, Behavior is calm, cooperative, appropriate for age. ll1 Pain: Complains of pain in left leg. Musculoskeletal: Reports pain in left leg. Historical: - Allergies: 09:26 Compazine; ll1 09:26 Iron Infusions; ll1 09:26 Reglan; ll1 09:39 Midol; ll1 09:39 "antibacterial wipes Hexagon"; ll1 - PMHx: 09:26 Anxiety; CHF; Pacemaker; Hypothyroidism; chronic back pain (Unknown); kidney failure ll1 (Unknown); Depression; GERD; Tachycardia; pancreatic cancer; Osteoporosis; - PSHx: 09:26 Appendectomy; breast implant; pacemaker; Cholecystectomy; Tonsillectomy; back surgery; ll1 Whipple procedure; - Immunization history:: Adult Immunizations up to date. - Infectious Disease History:: Denies. - Social history:: Smoking status: Patient denies any tobacco usage or history of. Screenin:30 [facility] ED Fall Risk Assessment (Adult) History of falling in the last 3 months, rs5 including since admission No falls in past 3 months (0 pts) Confusion or Disorientation No (0 pts) Intoxicated or Sedated No (0 pts) Impaired Gait Yes (1 pt) Mobility Assist Device Used No (0 pt) Altered Elimination No (0 pt) Score/Fall Risk Level 0 - 2 = Low Risk Oriented to surroundings, Maintained a safe environment. Abuse screen: Denies threats or abuse. Nutritional screening: No deficits noted. Tuberculosis screening: No symptoms or risk factors identified. Assessment: 09:30 General: Appears in no apparent distress. uncomfortable, Behavior is calm, cooperative. rs5 Pain: Complains of pain in left leg Pain currently is 4 out of 10 on a pain scale. Quality of pain is described as aching, Is continuous. Neuro: Level of Consciousness is awake, alert, obeys commands, Oriented to person, place, time, situation. Cardiovascular: Patient's skin is warm and dry. Respiratory: Airway is patent Respiratory effort is even, unlabored, Respiratory pattern is regular, symmetrical. GI: Abdomen is round non-distended, Abd is soft and non tender X 4 quads. 09:30 : No signs and/or symptoms were reported regarding the genitourinary system. EENT: No rs5 signs and/or symptoms were reported regarding the EENT system. Derm: Skin is intact, Skin is pink, warm \\T\\ dry. Musculoskeletal: Range of motion: limited in left leg. 10:25 Reassessment: Patient and/or family updated on plan of care and expected duration. Pain rs5 level reassessed. Patient is alert, oriented x 3, equal unlabored respirations, skin warm/dry/pink. 11:39 Reassessment: Patient and/or family updated on plan of care and expected duration. Pain rs5 level reassessed. Patient is alert, oriented x 3, equal unlabored respirations, skin warm/dry/pink. 12:11 Reassessment: Patient and/or family updated on plan of care and expected duration. Pain rs5 level reassessed. Patient is alert, oriented x 3, equal unlabored respirations, skin warm/dry/pink. 12:15 General: Appears in no apparent distress. uncomfortable, Behavior is calm, cooperative. me1 Pain: Complains of pain in left leg Pain does not radiate. Pain currently is 8 out of 10 on a pain scale. Quality of pain is described as aching, Is continuous. Neuro: Level of Consciousness is awake, alert, obeys commands, Oriented to person, place, time, situation. Cardiovascular: Patient's skin is warm and dry. Respiratory: Airway is patent Respiratory effort is even, unlabored, Respiratory pattern is regular, symmetrical. GI: Abdomen is round non-distended. : No signs and/or symptoms were reported regarding the genitourinary system. EENT: No signs and/or symptoms were reported regarding the EENT system. Derm: Skin is intact, Skin is pink, warm \\T\\ dry. Musculoskeletal: Range of motion: limited in left leg. 13:09 General: Asked to ambulate patient by physician. Patient refused to ambulate stating me1 that she was crawling at home because she was too weak to ambulate. 18:27 General: Report called to CHRISTINA Norton. [facility] [place] Vital Signs: 09:27 BP 120 / 87; Pulse 79; Resp 17; Temp 98; Pulse Ox 98% ; Pain 10/10; ll1 11:01 BP 122 / 79; Pulse 80; Resp 17; Pulse Ox 99% on R/A; rs5 12:11 BP 125 / 84; Pulse 84; Resp 17; Pulse Ox 98% on R/A; rs5 13:00 BP 134 / 62; Pulse 65; Resp 16; Pulse Ox 100% ; me1 14:00 BP 106 / 116; Pulse 66; Resp 16; Pulse Ox 99% ; me1 14:42 Pain 6/10; me1 15:00 BP 124 / 72; Pulse 70; Resp 15; Pulse Ox 98% ; me1 16:00 BP 124 / 64; Pulse 80; Resp 16; Pulse Ox 100% ; me1 17:00 BP 114 / 62; Pulse 64; Resp 17; Pulse Ox 98% ; me1 18:00 BP 128 / 82; Pulse 59; Resp 16; Pulse Ox 97% ; me1 19:00 BP 123 / 69; Pulse 73; Resp 16; Pulse Ox 100% ; me1 19:50 Pain 4/10; me1 20:00 BP 119 / 63; Pulse 63; Resp 16; Pulse Ox 100% ; ri1 09:27 Pain Scale: Adult ll1 14:42 Pain Scale: Adult me1 19:50 Pain Scale: Adult me1 ED Course: 09:24 Patient arrived in ED. ra3 09:26 Arm band placed on Patient placed in an exam room, on a stretcher. ll1 09:27 Nimco Ramirez is Attending Physician. ci 09:28 Triage completed. ll1 09:30 Patient has correct armband on for positive identification. Placed in gown. Bed in low rs5 position. Call light in reach. Side rails up X2. 09:30 No provider procedures requiring assistance completed. rs5 10:00 Garfield Piper, RN is Primary Nurse. rs5 10:01 CT Lumbar Spine Wo Con In Process Unspecified. EDMS 15:[address] [facility]. bd 17:54 Provided Education on: POC. Verbalized understanding. . me1 20:19 Patient transferred, IV remains in place. me1 Administered Medications: 10:30 Drug: MethylPREDNISolone Sodium Succinate IM 40 mg IM once Route: IM; Site: left rs5 deltoid; 11:01 Follow up: Response: No adverse reaction rs5 10:30 Drug: morphine IVP or IV 4 mg IVP once over 4 mins Route: IVP; Infused Over: 4 mins; bp Site: Port-a-cath; 11:00 Follow up: Response: No adverse reaction; Pain is unchanged, physician notified me1 10:59 Drug: fentaNYL (PF) IVP 25 mcg IVP once Route: IVP; Site: Port-a-cath; rs5 11:20 Follow up: Response: No adverse reaction; Pain is decreased rs5 14:26 Drug: morphine IVP or IV 4 mg IVP once over 4 mins Route: IVP; Infused Over: 4 mins; me1 Site: right forearm; 14:42 Follow up: Pain 6/10 Adult; Response: No adverse reaction; Pain is decreased me1 19:44 Drug: morphine IVP or IV 4 mg IVP once over 4 mins Route: IVP; Infused Over: 4 mins; me1 Site: right forearm; 19:50 Follow up: Pain 4/10 Adult; Response: No adverse reaction; Pain is decreased me1 Medication: 10:07 VIS not applicable for this client. rs5 Outcome: 13:55 ER care complete, transfer ordered by . ci 20:19 Transferred by ground EMS to [facility], Transfer form completed. me1 X-rays sent w/ patient. Note: clinical unit coordinator 20:19 Transferred 20:19 Condition: stable 20:19 Instructed on the need for transfer, 20:20 Patient left the ED. me1 Signatures: Dispatcher [employer] EDRosa Navarrete Brian RN RN bp Jasmine Mittal RN RN ll1 Garfield Piper RN RN 5 Palma Kinney RN RN me1 Nimco Ramirez Ruby ra3 Corrections: (The following items were deleted from the chart) 09: 09:27 Onset of symptoms was August 18, 2024 ll1 ll1 09:40 09:26 Allergies: Ibuprofen; ll1 ll1 09:40 09:26 Allergies: metronidazole; ll1 ll1 09:40 09:26 Allergies: Pamabrom; ll1 ll1 09:40 09:26 Allergies: pyrilamine maleate; ll1 ll1 09:40 09:26 Allergies: sodium ferric gluconate complex; ll1 ll1 09:40 09:26 Allergies: sucrose; ll1 ll1 09:40 09:27 Pain 08/27, Adult; ll1 ll1
--- NOTE | 2024-09-16 13:56 | EDPHYS ---
Physician Documentation [facility] Name: Jennifer Haddad Age: 64 yrs Sex: Female : 1960 Arrival Date: 09/16/2024 Time: 09:21 Bed 16 Private MD: ED Physician Nimco Ramirez HPI: 09/16 11:05 This 64 yrs old Female presents to ER via Wheelchair with complaints of Leg Pain - with ci numbness-Left. 11:05 Patient is a 64-year-old female with PMH CHF, anxiety, hypothyroidism, chronic back ci pain who presents to the ED with chief complaint of left-sided low back pain that began 3 weeks ago. Pain is constant, aggravated by walking. Patient reports she was seen in the ED and had imaging done and which showed she had a protrusion. She has been taking Sinton with no improvement. She is scheduled to see neurosurgery in September. Patient also reports frequent falls, fell on Saturday, landed on her right side. No head strike, no LOC, not on blood thinners. Patient reports she has been crawling to ambulate at home due to pain. Denies bowel/bladder dysfunction, no fever, no IVDU. Historical: - Allergies: 09:26 Compazine; ll1 09:26 Iron Infusions; ll1 09:26 Reglan; ll1 09:39 Midol; ll1 09:39 "antibacterial wipes Hexagon"; ll1 - PMHx: 09:26 Anxiety; CHF; Pacemaker; Hypothyroidism; chronic back pain (Unknown); kidney failure ll1 (Unknown); Depression; GERD; Tachycardia; pancreatic cancer; Osteoporosis; - PSHx: 09:26 Appendectomy; breast implant; pacemaker; Cholecystectomy; Tonsillectomy; back surgery; ll1 Whipple procedure; - Immunization history:: Adult Immunizations up to date. - Infectious Disease History:: Denies. - Social history:: Smoking status: Patient denies any tobacco usage or history of. ROS: 11:05 Constitutional: Negative for fever, chills, and weight loss, Eyes: Negative for injury, ci pain, redness, and discharge, ENT: Negative for injury, pain, and discharge, Cardiovascular: Negative for chest pain, palpitations, and edema, Respiratory: Negative for shortness of breath, cough, wheezing, and pleuritic chest pain, Abdomen/GI: Negative for abdominal pain, nausea, vomiting, diarrhea, and constipation, Back: Positive back pain Neuro: Negative for headache, weakness, tingling, and seizure. Positive left leg numbness Exam: 11:05 Constitutional: This is a well developed, well nourished patient who is awake, alert, ci and in no acute distress. Head/Face: Normocephalic, atraumatic. Eyes: Pupils equal round and reactive to light, extra-ocular motions intact. Lids and lashes normal. Conjunctiva and sclera are non-icteric and not injected. Cornea within normal limits. Periorbital areas with no swelling, redness, or edema. ENT: Nares patent. No nasal discharge, no septal abnormalities noted. Tympanic membranes are normal and external auditory canals are clear. Oropharynx with no redness, swelling, or masses, exudates, or evidence of obstruction, uvula midline. Mucous membranes moist. Neck: Trachea midline, no thyromegaly or masses palpated, and no cervical lymphadenopathy. Supple, full range of motion without nuchal rigidity, or vertebral point tenderness. No Meningismus. Chest/axilla: Normal chest wall appearance and motion. Nontender with no deformity. No lesions are appreciated. Cardiovascular: Regular rate and rhythm with a normal S1 and S2. No gallops, murmurs, or rubs. Normal PMI, no JVD. No pulse deficits. Respiratory: Lungs have equal breath sounds bilaterally, clear to auscultation and percussion. No rales, rhonchi or wheezes noted. No increased work of breathing, no retractions or nasal flaring. Abdomen/GI: Soft, non-tender, with normal bowel sounds. No distension or tympany. No guarding or rebound. No evidence of tenderness throughout. Back: Positive lumbar spinal tenderness. No costovertebral tenderness. Full range of motion. Skin: Warm, dry with normal turgor. Normal color with no rashes, no lesions, and no evidence of cellulitis. MS/ Extremity: Pulses equal, no cyanosis. Neurovascular intact. Full, normal range of motion. Neuro: Awake and alert, GCS 15, oriented to person, place, time, and situation. Cranial nerves II-XII grossly intact. Motor strength 5/5 in all extremities. Sensory grossly intact. Cerebellar exam normal. Normal gait. Vital Signs: 09:27 BP 120 / 87; Pulse 79; Resp 17; Temp 98; Pulse Ox 98% ; Pain 10/10; ll1 11:01 BP 122 / 79; Pulse 80; Resp 17; Pulse Ox 99% on R/A; rs5 12:11 BP 125 / 84; Pulse 84; Resp 17; Pulse Ox 98% on R/A; rs5 13:00 BP 134 / 62; Pulse 65; Resp 16; Pulse Ox 100% ; me1 14:00 BP 106 / 116; Pulse 66; Resp 16; Pulse Ox 99% ; me1 14:42 Pain 6/10; me1 15:00 BP 124 / 72; Pulse 70; Resp 15; Pulse Ox 98% ; me1 16:00 BP 124 / 64; Pulse 80; Resp 16; Pulse Ox 100% ; me1 17:00 BP 114 / 62; Pulse 64; Resp 17; Pulse Ox 98% ; me1 18:00 BP 128 / 82; Pulse 59; Resp 16; Pulse Ox 97% ; me1 19:00 BP 123 / 69; Pulse 73; Resp 16; Pulse Ox 100% ; me1 19:50 Pain 4/10; me1 20:00 BP 119 / 63; Pulse 63; Resp 16; Pulse Ox 100% ; me1 09:27 Pain Scale: Adult ll1 14:42 Pain Scale: Adult me1 19:50 Pain Scale: Adult me1 MDM: 09:29 Medical Screening Exam initiated ci 11:05 Differential diagnosis: Herniated disc, lumbar radiculopathy, sciatica. Doubt cauda ci equina, epidural abscess/hematoma. Data reviewed: vital signs, nurses notes, old medical records, Patient was seen in the ED on 08/14/2024, had a CT lumbar spine that showed no fracture and some degenerative disc changes. She was also seen in the ED on 08/27/2024, received Decadron. Care significantly affected by the following chronic conditions: Congestive Heart Failure, Chronic Kidney Disease, Hypothyroidism,. 13:14 ED course: Discussed transfer for neurosurgery evaluation but patient declined, reports ci she has an appointment on September 23 with a orientation & mobility specialist.. 13:52 ED course: Patient attempted to ambulate in the ED and is complaining of increased ci pain. Patient changed her mind and requesting to be admitted. Neurosurgery unavailable at our facility, transfer initiated. 16:31 ED course: Accepted by Dr. Lauren Nicholas at [facility]. ci 09/16 09:49 Order name: BMP; Complete Time: 11:13 ci 09/16 09:49 Order name: CBC with Diff; Complete Time: 11:04 ci 09/16 09:48 Order name: CT Lumbar Spine Wo Con; Complete Time: 10:44 ci Administered Medications: 10:30 Drug: MethylPREDNISolone Sodium Succinate IM 40 mg IM once Route: IM; Site: left rs5 deltoid; 11:01 Follow up: Response: No adverse reaction rs5 10:30 Drug: morphine IVP or IV 4 mg IVP once over 4 mins Route: IVP; Infused Over: 4 mins; bp Site: Port-a-cath; 11:00 Follow up: Response: No adverse reaction; Pain is unchanged, physician notified me1 10:59 Drug: fentaNYL (PF) IVP 25 mcg IVP once Route: IVP; Site: Port-a-cath; rs5 11:20 Follow up: Response: No adverse reaction; Pain is decreased rs5 14:26 Drug: morphine IVP or IV 4 mg IVP once over 4 mins Route: IVP; Infused Over: 4 mins; me1 Site: right forearm; 14:42 Follow up: Pain 6/10 Adult; Response: No adverse reaction; Pain is decreased me1 19:44 Drug: morphine IVP or IV 4 mg IVP once over 4 mins Route: IVP; Infused Over: 4 mins; me1 Site: right forearm; 19:50 Follow up: Pain 4/10 Adult; Response: No adverse reaction; Pain is decreased me1 Disposition Summary: 09/16/24 13:55 Transfer Ordered Notes: Transfer Location: Other Acute Care Facility ci Reason: Higher level of care ci Condition: Stable ci Problem: an acute exacerbation ci Symptoms: are unchanged ci Accepting Physician: Unknown(09/16/24 20:20) me1 Diagnosis - Low back pain ci - Other intervertebral disc displacement, lumbar region - Herniated disc ci Forms: - Medication Reconciliation Form ci - SBAR form ci Signatures: Dispatcher [employer] Karan Vazquez RN RN bp Jasmine Mittal RN RN 1 Garfield Piper RN RN 5 Palma Kinney RN RN me1 Nimco Ramirez ci Corrections: (The following items were deleted from the chart) 09:40 09:26 Allergies: Ibuprofen; ll1 ll1 09:40 09:26 Allergies: metronidazole; ll1 ll1 :40 09:26 Allergies: Pamabrom; ll1 ll1 :40 09:26 Allergies: pyrilamine maleate; ll1 ll1 :40 09:26 Allergies: sodium ferric gluconate complex; ll1 ll1 09:40 09:26 Allergies: sucrose; ll1 ll1 13:53 11:05 Patient is a 64-year-old female with PMH CHF, anxiety, hypothyroidism, chronic ci back pain who presents to the ED with chief complaint of left-sided low back pain that began 3 weeks ago. Pain is constant, aggravated by walking. Patient reports she was seen in the ED and had imaging done and which showed she had a protrusion. She has been taking Sinton with no improvement. She is scheduled to see neurosurgery in September. Patient also reports frequent falls, fell on Saturday, landed on her right side. No head strike, no LOC, not on blood thinners.. ci 13:56 13:55 Unknown ci ci 20:20 13:56 Unknown ci me1
[2024-09-16] MEDS ORDERED: MORPHINE 4 MG/ML SYR ONE ×2 (14:19→19:38)
[2024-09-16 21:12] VITALS: TEMP 98
[2024-09-16 21:23] VITALS: O2SAT 100
[2024-09-16 21:25] VITALS: BP 119/63
== END 2024-09-16 20:20 ==
LOC: ER 09:21
DX: M51.26 Other intervertebral disc displacement, lumbar region (principal); Z95.0 Presence of cardiac pacemaker
CPT/HCPCS: 85025; 80048; 36415; 72131; J3010; J2919; 96372; 99285

== ENCOUNTER 2025-03-12 12:27 | Inpatient (IN) | payer OTHER ==
[2025-03-12 13:44] LABS: Specific Gravity 1.008 (1.005-1.030); Urine Bilirubin NEGATIVE (Negative); Urine Blood Negative (Negative); Urine Clarity Clear (Clear); Urine Color Colorless (Yellow); Urine Glucose NEGATIVE (Negative); Urine Ketones NEGATIVE (Negative); Urine Microscopic Reflex YN NO UMIC; Urine Nitrite NEGATIVE (Negative); Urine Protein NEGATIVE (Negative); Urine Urobilinogen Normal (Normal)
[2025-03-12 14:41] LABS: Hematocrit 40.4 % (36.0-45.0); Hemoglobin 13.8 g/dL (12.0-15.0); MCHC 34.2 g/dL (32.0-36.0); MCV 93.5 fL (80-100); MPV 9.3 fL (7.6-11.3); Platelets 167 thou/uL (152-406); RBC Red Blood Cell Count 4.33 M/uL (3.86-4.86); Red Cell Distribution Width 13.7 % (12.1-15.2)
[2025-03-12] MEDS ORDERED: POLYETHYL GLY 3350 17 GM/DOSE PO PRN (15:05)
[2025-03-12 15:50] LABS: ALT/SGPT 48 U/L (13-56); AST/SGOT 45 U/L (15-37); Albumin 3.3 g/dL (3.4-5.0); Alkaline Phosphatase 132 U/L (45-117); Anion Gap 7.2 mEq/L (5.0-15.0); BUN Blood Urea Nitrogen 20 mg/dL (7-18); Bicarbonate 29 mEq/L (21-32); Bilirubin Total 0.6 mg/dL (0.2-1.0); Globulin 3.2 g/dL (2.3-3.5); Glomerular Filtration Rate 26 ml/min (=/>90); Glucose Level 67 mg/dL (74-106); Lipase 7 U/L (13-75); Magnesium 2.1 mg/dL (1.6-2.4); Potassium 4.2 mEq/L (3.5-5.1); Protein, Total 6.5 g/dL (6.4-8.2); Sodium Level 138 mEq/L (136-145)
[2025-03-12 15:51] LABS: Bilirubin Direct < 0.2 mg/dL (0-0.2); Bilirubin Indirect, Calculated 0.4 mg/dL (0.2-0.8)
[2025-03-12 16:04] LABS: PT Prothrombin Time 10.6 SECONDS (10-13.0); PTT, Activated Partial Thromb 32.2 SECONDS (27.2-37.4); Protime INR 0.93
[2025-03-12] MEDS: ONDANSETRON 4 MG (ODT) TAB PO PRN (16:07)
[2025-03-12 16:08] VITALS: BMI 21.8
[2025-03-12] MEDS: CEFOXITIN 1 GM in NA CHLORIDE 0.9% 50 ML IVPB SCH (16:32)
[2025-03-12] MEDS: NACHLORIDE 0.45% 1,000 ML IV SCH (16:32)
[2025-03-12] MEDS: HYDROMORPHONE HCL 1 MG/ML INJ IV PRN (16:33)
[2025-03-12] MEDS: LORAZEPAM 1 MG TABLET PO PRN (17:08)
--- NOTE | 2025-03-12 19:09 | RAD REPORT ---
EXAM: CT CHEST, ABDOMEN AND PELVIS WITHOUT CONTRAST CLINICAL INDICATION: Female, 64 years old. [facility] MAIN severe abd pain No IV contrast, Oral is okay TECHNIQUE: CT chest, abdomen and pelvis was performed, without IV contrast, as per department protoco l. Axial, sagittal and coronal reconstructions were obtained. One or more of the following dose reduction techniques were used: Automated exposure control, adjustment of the mA and/or kV according to the patient size, and/or iterative reconstruction. Unless otherwise specified, incidental findings do not require dedicated imaging follow-up. COMPARISON: CT chest 01/19/2024. CT lumbar spine 09/16/2024. FINDINGS: The lack of intravenous contrast limits the sensitivity of this exam for evaluation of solid visceral organs, vascular structures, and retroperitoneum. Chest: LOWER NECK/CHEST WALL: Visualized thyroid gland and soft tissues are normal. LUNGS AND AIRWAYS: Airways are clear. No evidence of airspace or interstitial process. 3 mm periphera l left lower lobe nodule on axial image 41. There is fissural 4 mm nodule along the left lower lobe on axial image 33. PLEURA: No pleural effusion. No pneumothorax. Hemidiaphragms are normally positioned. MEDIASTINUM AND LYMPH NODES: No mediastinal mass or fluid collection. Normal size mediastinal, hilar, and axillary lymph nodes. THORACIC AORTA: Normal caliber and configuration. PULMONARY ARTERIES: Normal caliber. HEART: Unremarkable. Collapsed left subpectoral implant capsule again seen. Abdomen/Pelvis LIVER: Normal in size and contour. No focal lesion. GALLBLADDER/BILE DUCTS: No biliary ductal dilatation. PANCREAS: Marked diffuse fatty infiltration of the remainder of the pancreas. Appearance is stable. S urgical clips in the renee hepatis which may relate to pancreaticoduodenectomy. No mass, ductal dilation, or jolanta-pancreatic fluid. SPLEEN: Normal size. No focal lesion. ADRENALS: Normal; no mass. KIDNEYS AND URETERS: Normal size and contour. No hydronephrosis. GASTROINTESTINAL TRACT: Stomach is non-dilated. Small bowel has normal course and caliber. No colonic wall thickening or pericolonic inflammatory changes. PERITONEUM: No free fluid. LYMPH NODES: No lymphadenopathy. ABDOMINAL AORTA AND OTHER VESSELS: Normal caliber aorta and IVC. URINARY BLADDER: Normal contour. REPRODUCTIVE ORGANS: No pathologic process. MUSCULOSKELETAL: No acute or suspicious osseous abnormality. ADDITIONAL FINDINGS: None IMPRESSION: No acute or significant abnormalities in the chest, abdomen, or pelvis. Stable findings as above.
--- NOTE | 2025-03-12 19:10 | RAD REPORT ---
EXAMINATION: TWO VIEW CHEST XR CLINICAL INDICATION: Female, 64 years old. [facility] MAIN pain TECHNIQUE: 2 view radiographs of the chest were performed. COMPARISON: 07/24/2023 FINDINGS: The lungs are well inflated and clear. No pneumothorax or sizable effusion. The heart is normal in si ze. Mediastinal contours are unremarkable. Left Port-A-Cath and right chest wall pacer in place. IMPRESSION: No acute or significant abnormalities.
[2025-03-13 06:14] LABS: Hematocrit 37.9 % (36.0-45.0); Hemoglobin 12.7 g/dL (12.0-15.0); MCH 31.5 pg (27.0-35.0); MCHC 33.6 g/dL (32.0-36.0); MCV 93.8 fL (80-100); MPV 8.4 fL (7.6-11.3); Platelets 172 thou/uL (152-406); RBC Red Blood Cell Count 4.04 M/uL (3.86-4.86); Red Cell Distribution Width 13.8 % (12.1-15.2)
[2025-03-13 06:37] LABS: Anion Gap 5.6 mEq/L (5.0-15.0); Magnesium 2.1 mg/dL (1.6-2.4); Potassium 4.6 mEq/L (3.5-5.1)
[2025-03-13] MEDS: LEVOTHYROXINE SOD 0.088 MG TAB PO SCH (06:55)
[2025-03-13] MEDS: NACHLORIDE 0.45% 1,000 ML IV SCH ×2 (08:50→11:15)
[2025-03-13] MEDS: ENOXAPARIN 30 MG/0.3 ML SQ SCH (08:51)
[2025-03-13] MEDS: PANTOPRAZOLE 40 MG INJ IVP SCH (08:51)
[2025-03-13] MEDS: SODIUM CHLORIDE 0.9% 10ML INJ IV SCH (08:52)
[2025-03-13] MEDS: DULOXETINE 30 MG CAP PO SCH (08:52)
[2025-03-13] MEDS: allopurinoL 100 MG TAB PO SCH (08:52)
[2025-03-13] MEDS: ACETAMINOPHEN 325 MG TABLET PO PRN (10:34)
--- NOTE | 2025-03-13 17:27 | P.PN ---
Subjective Date of Service: 03/13/25 Chief Complaint: PAIN HAS IMPROVED. Subjective: Improving SHE HAD EPIG PAIN AND LIPASE IS NEGATIVE. PAIN IS BETTER THAN YEST. Review of Systems 10-point ROS is otherwise unremarkable General: Weakness Physical Examination - Vital Signs Temperature: 98.0 F Blood Pressure: 93/44 Pulse: 60 Respirations: 16 Pulse Ox (%): 100 - Physical Exam General: Mild distress, Moderate distress HEENT: Atraumatic, PERRLA, EOMI Neck: Supple, JVD not distended Respiratory: Clear to auscultation bilaterally, Normal air movement Cardiovascular: Regular rate/rhythm, Normal S1 S2 Gastrointestinal: Normal bowel sounds, No tenderness Musculoskeletal: No tenderness Integumentary: No rashes Neurological: Normal speech, Normal tone, Normal affect Lymphatics: No axilla or inguinal lymphadenopathy - Studies Laboratory Data (last 24 hrs) 03/13/25 03/13/25 05:28 05:25 WBC 4.40 Hgb 12.7 Hct 37.9 Plt Count 172 Sodium 138 Potassium 4.6 BUN 20 H Creatinine 2.15 H Glucose 81 Magnesium 2.1 Medications List Reviewed: Yes Assessment And Plan - Current Problems (Diagnosis) (1) Epigastric pain Current Visit: Yes Status: Acute Plan: PANTO IV CONT MEDS CLEAR LQUIDS. TRY CREON ORALLY. (2) Pancreatic insufficiency Current Visit: Yes Status: Chronic Plan: MOST OF TH EPANCREAS IS TAKEN OUT. (3) Chronic renal disease Onset Date: 09/17/17 Current Visit: No Status: Chronic Plan: GFR 25 OR SO. (4) Depression with anxiety Onset Date: 09/17/17 Current Visit: No Status: Chronic (5) History of pancreatic cancer Onset Date: 09/17/17 Current Visit: No Status: Chronic
[2025-03-13] MEDS: HYDROCODONE/APAP 10/325 TAB PO SCH (20:42)
[2025-03-13] MEDS: LIPASE/PROTEASE/AMYLASE CAP PO SCH (20:52)
[2025-03-14 05:45] LABS: C.diff Antigen/Toxin Ag neg : Tox neg (NEG : NEG); CDIFF INTERNAL NEG CONTROL White Background (WHITE BKGD); STOOL CONSISTENCY Liquid/Semi-Solid
--- NOTE | 2025-03-14 11:24 | P.PN ---
Subjective Date of Service: 03/14/25 Chief Complaint: PAIN HAS IMPROVED. Subjective: Improving (Patient feels significantly better, her stool is now returning to regular.) Physical Examination - Vital Signs Temperature: 97.7 F Blood Pressure: 96/41 Pulse: 60 Respirations: 14 Pulse Ox (%): 96 - Physical Exam General: Alert, In no apparent distress, Oriented x3, Cooperative Gastrointestinal: Other (Soft, nontender nondistended no rebound or guarding no focal peritonitis well-healed surgical scars evident.) - Studies Medications List Reviewed: Yes Assessment And Plan - Plan Patient is a 64-year-old woman with a complicated medical history including a Whipple procedure, whose had umbilical drainage before in the past which improved now she presented with abdominal pain. Her pain sounds more along the lines of gastritis as a was associated with concomitant diarrhea of a different character than her usual, as she states she has frequent episodes of diarrhea due to her Whipple procedure. - As the patient has significant improvement with acid suppression therapy, I recommend continued acid suppression therapy as an outpatient. - Dietary recommendations made with patient with regard to her possibility of gastritis, possible ulcer disease. - Recommend follow-up for endoscopy as an outpatient. - Stool studies sent and currently pending to evaluate for pancreatic insufficiency, in addition stool studies are also pending for ova parasites, infectious etiologies. Fecal fat currently pending as well. - Okay to DC from a surgical standpoint and follow-up as an outpatient for ongoing workup - Medical management per Dr. Thomas
--- NOTE | 2025-03-14 20:50 | P.PN ---
Subjective Date of Service: 03/14/25 Chief Complaint: PAIN HAS IMPROVED. Subjective: Improving SHE HAD EPIG PAIN AND LIPASE IS NEGATIVE. PAIN IS BETTER THAN YEST. SHE HAS LOT OF STRESS AT HOME AND ABDOMEN PAIN HAS BECOME A DAILY COMPLAINT. CT NEG. I CALLED DR. TRAN TO GET HER EGD DONE FROM HER ROOM. HE WILL SEE HER IN AM AFTER DISCHARGE TO GET IT DONE. SHE WILL BE NPO AFTER MID NIGHT. SHE MAY HAVE IBS RELATED PAIN LIBRIUM MAY HELP SHE IS ALREADY ON HIGH DOSE OF ATIVAN SHE HERSELF HAD CKD 4 AND IS VERY ILL ALSO. SHE HAS BEEN ANTIDEPRESSENT ALSO. Physical Examination - Vital Signs Temperature: 97.8 F Blood Pressure: 127/48 Pulse: 60 Respirations: 16 Pulse Ox (%): 100 - Physical Exam General: Oriented x3, Mild distress, Moderate distress HEENT: Atraumatic, PERRLA, EOMI Neck: Supple, JVD not distended Respiratory: Clear to auscultation bilaterally, Normal air movement Cardiovascular: Regular rate/rhythm, Normal S1 S2 Gastrointestinal: Normal bowel sounds, Tenderness (NOW MOVED TO LOWER ABDOMEN AND MID ABDOMEN FROM EPIG PAIN. SHE HAS SEEN DR. JASPREET [place] IN [place] SHE HAD ABSCESS OF UMBILLICUS.) Musculoskeletal: No tenderness Integumentary: No rashes Neurological: Normal speech, Normal tone, Normal affect Lymphatics: No axilla or inguinal lymphadenopathy - Studies Medications List Reviewed: Yes Assessment And Plan - Current Problems (Diagnosis) (1) Epigastric pain Current Visit: Yes Status: Acute Plan: PANTO IV CONT MEDS CLEAR LQUIDS. TRY CREON ORALLY. HPI. (2) Pancreatic insufficiency Current Visit: Yes Status: Chronic Plan: MOST OF TH EPANCREAS IS TAKEN OUT. (3) Chronic renal disease Onset Date: 09/17/17 Current Visit: No Status: Chronic Plan: GFR 25 OR SO. (4) Depression with anxiety Onset Date: 09/17/17 Current Visit: No Status: Chronic (5) History of pancreatic cancer Onset Date: 09/17/17 Current Visit: No Status: Chronic
[2025-03-14] MEDS ORDERED: HYDROCODONE/APAP 5/325 MG TAB PO SCH (21:00)
[2025-03-15 01:26] VITALS: O2SAT 100
[2025-03-15 08:04] VITALS: BP 100/49; TEMP 97.8
[2025-03-15] MEDS: HYDROCODONE/APAP 5/325 MG TAB PO PRN (08:51)
[2025-03-15] MEDS: dexAMETHasone 10 MG/ML VIAL IV ONE (08:53)
[2025-03-15] MEDS: DIPHENHYDRAMINE 25 MG TAB/CAP PO PRN (09:07)
--- NOTE | 2025-03-15 13:05 | P.DS ---
Admission Date: 03/12/25 Discharge Date: 03/15/25 Disposition: ROUTINE DISCHARGE Discharge Condition: FAIR Reason for Admission: PAIN HAS IMPROVED. - Problems (1) Epigastric pain Status: Acute (2) Pancreatic insufficiency Status: Chronic (3) Chronic renal disease Onset Date: 09/17/17 Status: Chronic (4) Depression with anxiety Onset Date: 09/17/17 Status: Chronic (5) History of pancreatic cancer Onset Date: 09/17/17 Status: Chronic Hospital Course: LIVIER COMES TO OFFICE WITH SEVERE EPIG PAIN. SHE HAS NORMAL LIPASE. PAIN HAS NOW MOVED TO LOWER ABDOMEN. THIS AM SHE HAD BACK PAIN AND SHE WAS HOLDIGN HER BACK. SHE HAS A LOT OF STRESS AT HOME. I THINK SHE HAS IBS. SHE WILL BENEFIT FROM [employer] IN PLACE OF ATIVAN. SHE HAS MANY MEDICAL ISSUES ITSELF AND HAS A LOT ALSO. SHE NEEDS A PSYCHIATRIST BUT SHE WILL NOT GO. I CALLED DR. TRAN TO GET EGD DONE. HE AGREED TO DO AFTER DC TODAY HE IS NOT AUT[employer] LEASING [employer]NA[employer] FOR [employer]. SHE WAS ABOUT TO CANCEL THAT BUT I CONVINCED HER TO DO SO IT TOOKA LOT OF WORK TO GET IT DONE. Vital Signs/Physical Exam: Temp Pulse Resp BP Pulse Ox 97.8 F 62 17 100/49 L 96 03/15/25 08:00 03/15/25 08:00 03/15/25 08:51 03/15/25 08:00 03/15/25 08:51 Laboratory Data at Discharge: WBC 4.40 thou/uL (4.3-10.9) 03/13/25 05:25 Hgb 12.7 g/dL (12.0-15.0) 03/13/25 05:25 Hct 37.9 % (36.0-45.0) 03/13/25 05:25 Plt Count 172 thou/uL (152-406) 03/13/25 05:25 PT 10.6 SECONDS (10-13.0) 03/12/25 15:33 INR 0.93 03/12/25 15:33 APTT 32.2 SECONDS (27.2-37.4) 03/12/25 15:33 Sodium 138 mEq/L (136-145) 03/13/25 05:28 Potassium 4.6 mEq/L (3.5-5.1) 03/13/25 05:28 BUN 20 mg/dL (7-18) H 03/13/25 05:28 Creatinine 2.15 mg/dL (0.55-1.02) H 03/13/25 05:28 Glucose 81 mg/dL (74-106) 03/13/25 05:28 Phosphorus 3.0 mg/dL (2.5-4.9) 03/12/25 14:01 Magnesium 2.1 mg/dL (1.6-2.4) 03/13/25 05:28 Total Bilirubin 0.6 mg/dL (0.2-1.0) 03/12/25 14:01 AST 45 U/L (15-37) H 03/12/25 14:01 ALT 48 U/L (13-56) 03/12/25 14:01 Alkaline Phosphatase 132 U/L (45-117) H 03/12/25 14:01 Lipase 7 U/L (13-75) L 03/12/25 14:01 Home Medications: Estradiol 1 mg PO DAILY 08/02/14 Promethazine HCl 12.5 mg PO PRN PRN 09/16/17 Allopurinol 1 tab PO DAILY 03/12/25 Duloxetine HCl [Cymbalta] 1 tab PO DAILY WITH BREAKFAST 03/12/25 Ergocalciferol (Vitamin D2) [Vitamin D2] 1 cap PO SEECOM 03/12/25 Furosemide 40 mg PO DAILY 03/12/25 Hydrocodone Bit/Acetaminophen [Hydrocodon-Acetaminophn 10-325] 0.5 tab PO PRN PRN 03/12/25 LORazepam [Ativan*] 1 mg PO TID PRN 03/12/25 Levothyroxine [Synthroid*] 88 mcg PO [id number] 03/12/25 Potassium Chloride 10 meq PO BID 03/12/25 Lipase/Protease/Amylase [Jermain Teixeira 12,000 Units Capsule] 1 cap PO TID #90 cap 03/14/25 New Medications: Lipase/Protease/Amylase [Jermain Teixeira 12,000 Units Capsule] 1 cap PO TID #90 cap Followup: Ryan Thomas MD [Family Provider] - 03/17/25 (Call for appointment)
[2025-03-17 11:30] LABS: Fat Screen, Stool Abnormal (Normal)
[2025-03-21 23:42] LABS: Pancreatic Elastase-1 <10 mcg/g (>200)
== END 2025-03-15 09:53 | disposition home or self-care (01) | DRG 392 ==
LOC: 4TH 12:33
PROVIDERS: ADMIT Internal Medicine; ATTEND Internal Medicine
PROC: 02HV33Z Insertion of Infusion Device into Superior Vena Cava, Percutaneous Approach (ICD-10-PCS; principal; 2025-03-12)
DX: K58.9 Irritable bowel syndrome, unspecified (principal); N18.4 Chronic kidney disease, stage 4 (severe); K86.89 Other specified diseases of pancreas; F41.8 Other specified anxiety disorders; E03.9 Hypothyroidism, unspecified; K29.70 Gastritis, unspecified, without bleeding; Z88.8 Allergy status to other drugs, medicaments and biological substances; Z85.07 Personal history of malignant neoplasm of pancreas; Z90.411 Acquired partial absence of pancreas; Z79.899 Other long term (current) drug therapy
CPT/HCPCS: 36415; 71046; 71250; 74176; 80048; 80076; 81003; 82306; 82607; 82653; 82705; 83690; 83735; 84100; 84443; 85027; 85610; 85730; 87045; 87046; 87324; 89055; A4216; J0694; J1100; J1171; J1650; J2470; Q0162